=== PATIENT | female | born 1940 | race Caucasian/White ===

== ENCOUNTER 2017-11-16 07:05 | Observation (INO) | payer MEDICARE ==
[2017-11-03 14:47] LABS: BASOPHILS # (AUTO) 0.1 (0.0-0.1); BASOPHILS % 0.8 % (0.0-1.0); EOSINOPHILS # (AUTO) 0.3 (0.0-0.4); EOSINOPHILS % 4.2 % (0.0-6.0); HEMATOCRIT 36.6 % (34.2-44.1); HEMOGLOBIN 12.2 g/dL (12.0-16.0); LYMPHOCYTES # (AUTO) 1.2 (1.0-3.2); LYMPHOCYTES % 17.2 % (18.0-39.1); MEAN CORPUSCULAR HEMOGLOBIN 30.4 pg (28-32); MEAN CORPUSCULAR HGB CONC 33.3 g/dL (31-35); MEAN CORPUSCULAR VOLUME 91.3 fL (81-99); MONOCYTES # (AUTO) 0.9 (0.2-0.8); NEUTROPHILS # (AUTO) 4.6 (2.1-6.9); NEUTROPHILS % 64.7 % (38.7-80.0); PLATELET COUNT 243 x10e3/uL (140-360); RED BLOOD COUNT 4.01 x10e6/uL (3.6-5.1); RED CELL DISTRIBUTION WIDTH 12.8 % (11.7-14.4)
[2017-11-03 15:08] LABS: ANION GAP 12.8 mmol/L (8-16); CALCIUM 9.8 mg/dL (8.4-10.2); CREATININE, SERUM 1.75 mg/dL (0.57-1.11); POTASSIUM 4.8 mmol/L (3.5-5.1)
--- NOTE | 2017-11-03 15:34 | Diagnostic Imaging Report ---
PROCEDURE: Frontal and lateral views of the chest. COMPARISON: [facility], DX, CHEST 2 VIEWS, 11/17/2012, 14:50. INDICATIONS: PRE OPERATIVE CHEST X-RAY FOR HEMORRHOID FINDINGS: Lines/tubes: None. Lungs: The lungs are well inflated. Focal opacity in the left upper lobe measures approximately 2.5 x 1.1 cm (previously measured 2.2 x 1.4 cm) and contains a central marker. Stable associated linear opacity. There is no evidence of pneumonia or pulmonary edema. Previously described questionable 5 mm density in the right upper lobe is not seen on the current exam. Pleura: There is no pleural effusion or pneumothorax. Heart and mediastinum: The heart and the mediastinum are normal. Bones: Stable dextroscoliosis. IMPRESSION: 1. No acute cardiopulmonary abnormalities. 2. Focal opacity in the left upper lobe with central marker is slightly more prominent than on prior exam. Recommend contrast enhanced chest CT for further evaluation. Juan Manuel Collier M.D. Dictated by: Juan Manuel Collier M.D. on 11/03/2017 at 15:34 Electronically approved by: Juan Manuel Collier M.D. on 11/03/2017 at 15:34
[~2017-11-16] VITALS: Ht 162.6 cm; Wt 69.4 kg
[~2017-11-16 07:05] MED LIST: DIOVAN160 MG PO; PANTOPRAZOLE SO40 MG PO; TEMAZEPAM PO; Z EXFORGE PO; Z.0.LORAZEPAM0.5 MG PO; Z.0.NEURONTIN100 MG PO; Z.0.NORCO 7.5-3251 E PO; Z.0.PREVACID15 MG PO; Z.0.REGLAN5 MG PO; Z.0.SYNTHROID25 MCG PO; [UNRECOGNIZED DRUG - OTHER] PO
--- OUTSIDE RECORDS SUMMARY | 2017-11-16 07:07 | XMS REPORT ---
Author Author [facility] Address Unknown Phone Unavailable Care Team Providers Care Web Development Intern Name Role Phone ASHLEY HOPSON Unavailable Unavailable Problems This patient has no known problems. Allergies, Adverse Reactions, Alerts This patient has no known allergies or adverse reactions. Medications This patient has no known medications. Results Test Description Test Time Test Comments Text Results Atomic Results Result Comments CHEST 2 VIEWS [place] [address] Patient Name: KADE SAUCEDO MR #: [id number] : 1940 Age/Sex: 76/F Req # : [id number] Adm Physician: Ordered by: ASHLEY HOPSON MD Report #: [id number] Location: OR Room/Bed: Procedure: [id number] DX/CHEST 2 VIEWS Exam Date: 11/03/17 Exam Time : 1500 REPORT STATUS: Signed PROCEDURE: Frontal and lateral views of the chest. COMPARISON: [facility], , CHEST 2 VIEWS, 2012, 14:50. INDICATIONS: PRE OPERATIVE CHEST X-RAY FOR HEMORRHOID FINDINGS: Lines/tubes: None. Lungs: The lungs are well inflated. Focal opacity in the left upper lobe measures approximately 2.5 x 1.1 cm (previously measured 2.2 x 1.4 cm) and contains a central marker. Stable associated linear opacity. There is no evidence of pneumonia or pulmonary edema. Previously described questionable 5 mm density in the right upper lobe is not seen on the current exam. Pleura: There is no pleural effusion or pneumothorax. Heart and mediastinum: The heart and the mediastinum are normal. Bones: Stable dextroscoliosis. IMPRESSION: 1. No acute cardiopulmonary abnormalities. 2. Focal opacity in the left upper lobe with central marker is slightly more prominent than on prior exam. Recommend contrast enhanced chest CT for further evaluation. Ida Caldwell M.D. Dictated by: Ida Caldwell M.D. on 11/03/2017 at 15:34 Electronically approved by: Ida Caldwell M.D. on 11/03/2017 at 15:34 Dictated By: IDA CALDWELL MD [id number] Transcribed By: ELOINA on 11/03/17 1534 COPY TO: ASHLEY HOPSON MD
[2017-11-16] MEDS ORDERED: BUPIVACAINE 0.25%/EPI 30ML SDV INJ ONE (07:11)
[2017-11-16] MEDS ORDERED: LIDOCAINE HCL 1% LOCAL INJ 20 ML VIAL ONE (07:11)
[2017-11-16] MEDS ORDERED: LIDOCAINE JELLY 2% 10ML URO-JET ONE (07:11)
[2017-11-16] MEDS ORDERED: GELATIN SPONGE 12-7MM ONE (07:11)
[2017-11-16] MEDS ORDERED: GELATIN SPONGE SZ 100 ONE (07:14)
[2017-11-16] MEDS ORDERED: LIDOCAINE HCL 2% 30 ML TUBE ONE (07:14)
[2017-11-16] MEDS ORDERED: LIDOCAINE HCL 1% 2 ML AMP ONE (07:27)
[2017-11-16] MEDS ORDERED: HYDROMORPHONE 1MG/1ML INJ IV PRN (10:00)
[2017-11-16] MEDS ORDERED: ONDANSETRON HCL INJ 2 MG/ML VIAL IV PRN (10:00)
[2017-11-16] MEDS ORDERED: HYDROCODONE/APAP 7.5MG-325MG 1 EA TAB PO PRN (10:00)
[2017-11-16] MEDS ORDERED: ACETAMINOPHEN 1000 MG/100 ML IV PRN (10:00)
--- NOTE | 2017-11-16 10:34 | Operative Report ---
DATE OF PROCEDURE: November 16, 2017 PREOPERATIVE DIAGNOSIS: Rectal prolapse with prolapsing internal hemorrhoids. POSTOPERATIVE DIAGNOSIS: Rectal prolapse with prolapsing internal hemorrhoids. OPERATION PERFORMED: Circumferential rectal fixation and internal and external hemorrhoidectomy. GINSENG FARMER: CAMILA Rhodes. ANESTHESIA: General. COMPLICATIONS: None. ESTIMATED BLOOD LOSS: Minimal. DESCRIPTION OF PROCEDURE: With the patient lying in bed in the lithotomy position under good general anesthesia, the perineum was prepped with Betadine solution and draped in the usual manner. Examination at this point revealed as expected a very lax anal sphincter with some degree of rectal prolapse mostly anteriorly with some inflamed prolapsing internal hemorrhoids. A complete anorectal block was then performed using 0.25% Marcaine and 1% lidocaine mixed in equal parts. After this was done, the rectum was then tacked using interrupted sutures of 0 chromic in 6 quadrants fixating the rectum to try to prevent any further prolapse. After this was done, the external and internal hemorrhoidal components at the 4, 8 and 12 o'clock position were then sharply resected. The anal rectal verge was then further oversewn with 0 chromic suture and thus fixating the anorectal outlet. The skin and mucosa were then reapproximated with interrupted sutures of 3-0 chromic. This gave us satisfactory fixation and excision of the prolapsing hemorrhoids. Gelfoam pack impregnated with Xylocaine was then placed. A dressing was applied. The sponge, lap and needle count was correct. Patient tolerated the procedure well, and returned to the recovery room in stable condition. Job#: [id number] [place]
[2017-11-16 10:45] VITALS: BP 159/69
[2017-11-16] MEDS ORDERED: CEFOXITIN 1GM/ DEXTROSE 50ML 50 ML IV SCH (12:00)
[2017-11-16] MEDS: CEFOXITIN SOD 1 GM VIAL IV SCH ×2 (15:15→18:40)
[2017-11-16 16:00] VITALS: BP 149/67
[2017-11-16 16:09] VITALS: BP 159/69
[2017-11-16] MEDS: KETOROLAC TROMETHAMINE 30 MG/ML VIAL IV PRN (16:45)
[2017-11-16] MEDS: SODIUM CHLORIDE 0.9% 1000ML 1,000 ML IV SCH (17:40)
[2017-11-16] MEDS ORDERED: FENTANYL CITRATE/PF 100MCG/2 ML INJ ONE (19:14)
[2017-11-16] MEDS ORDERED: MIDAZOLAM HCL 2 MG/2 ML VIAL ONE (19:14)
[2017-11-16] MEDS ORDERED: PROPOFOL IV EMULSION 10 MG/ML 20 ML VIAL ONE (19:39)
[2017-11-16] MEDS ORDERED: ONDANSETRON HCL INJ 2 MG/ML VIAL ONE (19:39)
[2017-11-16] MEDS ORDERED: LIDOCAINE HCL 2% LOCAL INJ 5 ML SDV VIAL INJ ONE (19:39)
[2017-11-16] MEDS ORDERED: DEXAMETHASONE SOD PHOS INJ 4 MG/ML VIAL ONE (19:39)
[2017-11-16] MEDS ORDERED: SEVOFLURANE INHAL SOLN 250 ML PEN BTL ONE (19:39)
[2017-11-16 20:00] VITALS: BP 107/53
[2017-11-16 20:10] VITALS: BP 107/53
[2017-11-17 00:40] VITALS: BP 152/69
[2017-11-17 04:40] VITALS: BP 115/58
[2017-11-17] MEDS ORDERED: LEVOTHYROXINE SODIUM 25 MCG TABLET PO SCH ×2 (06:00→09:00)
[2017-11-17] MEDS: SODIUM CHLORIDE 0.9% 1000ML 1,000 ML IV SCH (06:23)
[2017-11-17 07:39] VITALS: BP 123/58
[2017-11-17 07:42] VITALS: BP 123/58
[2017-11-17] MEDS: KETOROLAC TROMETHAMINE 30 MG/ML VIAL IV PRN (08:02)
[2017-11-17] MEDS ORDERED: VALSARTAN 160 MG TAB PO SCH (09:00)
[2017-11-17] MEDS ORDERED: GABAPENTIN 100 MG CAP PO SCH (09:00)
[2017-11-17] MEDS ORDERED: AMLODIPINE PO SCH (09:00)
[2017-11-17] MEDS ORDERED: PANTOPRAZOLE SOD 40 MG TABEC PO SCH (09:00)
[2017-11-17] MEDS ORDERED: AMLODIPINE BESYLATE 10 MG TAB PO SCH (09:00)
[2017-11-17] MEDS ORDERED: VALSARTAN PO SCH (09:00)
[2017-11-17 11:45] VITALS: BP 118/56
== END 2017-11-17 13:29 | disposition home or self-care (01) ==
LOC: OR 07:05 → IMCU 10:36
PROVIDERS: ADMIT Surgery; ATTEND Surgery
DX: K62.3 Rectal prolapse (principal); K64.8 Other hemorrhoids; Z85.118 Personal history of other malignant neoplasm of bronchus and lung
CPT/HCPCS: 36415; 45541; 46260; 71046; 80048; 85025; 88304; 93005; G0378 ×2; J0694; J1100; J1170; J1885 ×2; J2001 ×3; J2250; J2405; J7030 ×2

== ENCOUNTER → 2019-02-07 | Day surgery (SDC) | payer MEDICARE ==
[2019-02-05 15:24] LABS: BASOPHILS # (AUTO) 0.1 (0.0-0.1); BASOPHILS % 0.5 % (0.0-1.0); EOSINOPHILS # (AUTO) 0.3 (0.0-0.4); HEMATOCRIT 39.1 % (34.2-44.1); HEMOGLOBIN 12.8 g/dL (12.0-16.0); LYMPHOCYTES # (AUTO) 0.9 (1.0-3.2); LYMPHOCYTES % 6.8 % (18.0-39.1); MEAN CORPUSCULAR HEMOGLOBIN 30.8 pg (28-32); MEAN CORPUSCULAR HGB CONC 32.7 g/dL (31-35); MONOCYTES # (AUTO) 1.2 (0.2-0.8); NEUTROPHILS # (AUTO) 10.7 (2.1-6.9); NEUTROPHILS % 81.4 % (38.7-80.0); PLATELET COUNT 267 x10e3/uL (140-360); RED BLOOD COUNT 4.16 x10e6/uL (3.6-5.1); RED CELL DISTRIBUTION WIDTH 13.5 % (11.7-14.4)
[~2019-02-07] MED LIST changes: +AMLODIPINE BESY10 MG PO; +IRBESARTAN-HCT1 EAC1 PO; +LIDOCAINE HCL 1% 2 ML AMP ONE; +LIDOCAINE HCL 2% LOCAL INJ 5 ML SDV VIAL INJ ONE; +MIDAZOLAM HCL 2 MG/2 ML VIAL ONE; +PROPOFOL IV EMULSION 10 MG/ML 20 ML VIAL ONE
--- OUTSIDE RECORDS SUMMARY | 2019-02-07 11:16 | XMS REPORT | Continuity of Care Document ---
Author Author [facility] Interface Address Unknown Phone Unavailable Problems Problem Status Onset Date Classification Date Reported Comments Source FECAL INCONTINANCE Active 10[facility]11/2018 [facility] PELVIC FLOOR R15.9 Active 09/04/2018 [facility] PELVIC FLOOR Active 08/31/2018 [facility] UNK Active 05/17/2018 [facility] Anxiety Active Problem 01/30/2019 [facility] Arthritis Active Problem 01/30/2019 [facility] Benign hypertension Active Problem 01/30/2019 [facility] History of lung cancer Active Problem 01/30/2019 [facility] Hypothyroid Active Problem 01/30/2019 [facility] Bilateral low back pain Active Problem 01/30/2019 [facility] Acute leg pain<sup>1</sup> Active Problem 01/30/2019 Bilateral [facility] Rectal prolapse Active Problem 01/30/2019 [facility] Rectal prolapse 01/30/2019 [facility] Essential hypertension 01/30/2019 [facility] Age-related osteoporosis without current pathological fracture 01/30/2019 [facility] Personal history of other malignant neoplasm of bronchus and lung 01/30/2019 [facility] RECTAL PROLAPSE Active [facility] Medications Medication Details Route Status Patient Instructions Ordering Provider Order Date Source Acetaminophen 500 MG Oral Tablet 1,000 mg=2 tab, PO, Q6H, 0 Refill(s) Active 07/13/2018 [facility] Amlodipine 2.5 mg, 1 tab, Route: PO, Drug form: TAB, Daily, Dosing Weight 72.727, kg, Start date: 07/13/18 9:00:00 D[employer] ATTACHING MACHINE TENDER, Duration: 30 day, Stop date: 08/11/18 9:00:00 CSTNotes: (Same as: Norvasc) Inactive 07/13/2018 [facility] valsartan 80 mg, 1 tab, Route: PO, Drug form: TAB, Daily, Dosing Weight 72.727, kg, Start date: 07/13/18 9:00:00 D[employer] ATTACHING MACHINE TENDER, Duration: 30 day, Stop date: 08/11/18 9:00:00 CSTNotes: Same as Diovan Inactive 07/13/2018 [facility] heparin 5,000 unit, 1 mL, Route: SUB-Q, Drug form: INJ, Q8H, Dosing Weight 72.727, kg, Start date: 07/13/18 8:00:00 D[employer] ATTACHING MACHINE TENDER, Stop date: 08/12/18 0:00:00 CSTNotes: porcine heparin Inactive 07/13/2018 [facility] Famotidine 20 mg, 1 tab, Route: PO, Drug form: TAB, Q12H, Dosing Weight 72.727, kg, Start date: 07/12/18 21:00:00 D[employer] ATTACHING MACHINE TENDER, Duration: 30 day, Stop date: 08/11/18 9:00:00 CSTNotes: (Same as: Pepcid) No Longer Active 07/13/2018 [facility] Tylenol 1,000 mg, 2 tab, Route: PO, Drug form: TAB, Q6H, Dosing Weight 72.727, kg, Start date: 07/12/18 18:00:00 DIE ATTACHING MACHINE TENDER, Duration: 30 day, Stop date: 08/11/18 12:00:00 CSTNotes: Max acetaminophen 4000 mg/day (4 gm/day). (Same as: Tylenol Extra Strength) No Longer Active 07/13/2018 [facility] heparin 5,000 unit, 1 mL, Route: SUB-Q, Drug form: INJ, Q8H, Dosing Weight 72.727, kg, Start date: 07/12/18 16:00:00 DIE ATTACHING MACHINE TENDER, Stop date: 08/11/18 8:00:00 CSTNotes: porcine heparin Inactive 07/12/2018 [facility] Ondansetron 4 mg, Route: IVP, ONCE, Dosing Weight 72.727, kg, PRN Nausea & Vomiting, Start date: 07/12/18 14:47:00 DIE ATTACHING MACHINE TENDER Inactive 07/12/2018 [facility] Flumazenil 0.2 mg, Route: IVP, PRN, Dosing Weight 72.727, kg, PRN Benzodiazepine Reversal, Initial dose, Start date: 07/12/18 14:47:00 DIE ATTACHING MACHINE TENDER, Duration: 30 day, Stop date: 08/11/18 14:46:00 DIE ATTACHING MACHINE TENDER Inactive 07/12/2018 [facility] Naloxone 0.4 mg, Route: IVP, Q2MIN, Dosing Weight 72.727, kg, PRN Narcotic Reversal, Start date: 07/12/18 14:47:00 DIE ATTACHING MACHINE TENDER, Duration: 8 doses or times, Stop date: Limited # of times Inactive 07/12/2018 [facility] Hydromorphone 0.5 mg, Route: IVP, Q5Min, Dosing Weight 72.727, kg, PRN Pain Score 7-10, Start date: 07/12/18 14:47:00 DIE ATTACHING MACHINE TENDER, Duration: 4 doses or times, Stop date: Limited # of times Inactive 07/12/2018 [facility] Morphine 2 mg, Route: IVP, Q5Min, Dosing Weight 72.727, kg, PRN Pain Score 4-6, Start date: 07/12/18 14:47:00 DIE ATTACHING MACHINE TENDER, Duration: 5 doses or times, Stop date: Limited # of times Inactive 07/12/2018 [facility] Acetaminophen 1,000 mg, Route: IVPB, Drug form: INJ, ONCE, Dosing Weight 72.727, kg, PRN Pain Score 1-3, Start date: 07/12/18 14:47:00 DIE ATTACHING MACHINE TENDER Inactive 07/12/2018 [facility] Labetalol 10 mg, Route: IVP, Q5Min, Dosing Weight 72.727, kg, PRN Elevated BP, Start date: 07/12/18 14:47:00 DIE ATTACHING MACHINE TENDER, Duration: 5 doses or times, Stop date: Limited # of times Inactive 07/12/2018 [facility] Calcium Chloride 0.0014 MEQ/ML / Potassium Chloride 0.004 MEQ/ML / Sodium Chloride 0.103 MEQ/ML / Sodium Lactate 0.028 MEQ/ML Injectable Solution 1,000 mL, Rate: 125 ml/hr, Infuse over: 8 hr, Route: IV, Dosing Weight 72.727 kg, Total Volume: 1,000, Start date: 07/12/18 14:47:00 DIE ATTACHING MACHINE TENDER, Duration: 30 day, Stop date: 08/11/18 14:46:00 DIE ATTACHING MACHINE TENDER, 1.83, m2 Inactive 07/12/2018 [facility] ceFAZolin (ANES) Route: IV, Drug form: INJ, ONCE, Stop date: 07/12/18 14:24:00 DIE ATTACHING MACHINE TENDER Inactive 07/12/2018 [facility] ketOROLAC (ANES) IV, ONCE Inactive 07/12/2018 [facility] Lidocaine 2 gm, 250 mL, Rate: Infuse as directed, Dosing Weight 72.727, kg, Route: IV, Total Volume: 250 mL, Start date: 07/12/18 14:15:00 DIE ATTACHING MACHINE TENDER, Duration: 30 day, Stop date: 08/11/18 14:14:00 DIE ATTACHING MACHINE TENDER, Replace Every: 24 hr Inactive 07/12/2018 [facility] Dexmedetomidine 200 microgram, 50 mL, Rate: Titrate, Start Dose: 0.02 microgram/kg/hr, Titration: 0.1 microgram/kg/hr every 30 min, Goal(s): keep patient comfortable, Max Dose: 1.5 microgram/kg/hr, Route: IV, Dosing Weight 72.727 kg, Total Volume: 50, Start date: . Inactive 07/12/2018 [facility] Ondansetron 4 mg, 2 mL, Route: IVP, Drug form: INJ, Q6H, Dosing Weight 72.727, kg, PRN Nausea & Vomiting, Start date: 07/12/18 14:15:00 DIE ATTACHING MACHINE TENDER, Duration: 30 day, Stop date: 08/11/18 14:14:00 CSTNotes: (Same as: Melyssa) MEDICATION WASTE Product Size: 4 mg Product Wasted: ___ mg No Longer Active 07/12/2018 [facility] Diphenhydramine 25 mg, 1 tab, Route: PO, Drug form: TAB, Bedtime, Dosing Weight 72.727, kg, PRN Insomnia, Start date: 07/12/18 14:15:00 DIE ATTACHING MACHINE TENDER, Duration: 30 day, Stop date: 08/11/18 14:14:00 DIE ATTACHING MACHINE TENDER No Longer Active 07/12/2018 [facility] metroNIDAZOLE (ANES) Route: IV, Drug form: INJ, ONCE, Stop date: 07/12/18 13:53:00 DIE ATTACHING MACHINE TENDER Inactive 07/12/2018 [facility] ondansetron (ANES) Route: IV, Drug form: INJ, ONCE, Stop date: 07/12/18 13:33:00 DIE ATTACHING MACHINE TENDER Inactive 07/12/2018 [facility] propofol (ANES) Route: IV, Drug form: INJ, ONCE, Stop date: 07/12/18 13:28:00 DIE ATTACHING MACHINE TENDER Inactive 07/12/2018 [facility] lidocaine (ANES) Route: IV, Drug form: INJ, ONCE, Stop date: 07/12/18 13:28:00 DIE ATTACHING MACHINE TENDER Inactive 07/12/2018 [facility] dexamethasone (ANES) Route: IV, Drug form: INJ, ONCE, Stop date: 07/12/18 13:28:00 DIE ATTACHING MACHINE TENDER Inactive 07/12/2018 [facility] midazolam (ANES) Route: IV, Drug form: SOLN, ONCE, Stop date: 07/12/18 13:18:00 DIE ATTACHING MACHINE TENDER Inactive 07/12/2018 [facility] fentaNYL (ANES) Route: IV, Drug form: INJ, ONCE, Stop date: 07/12/18 13:18:00 DIE ATTACHING MACHINE TENDER Inactive 07/12/2018 [facility] Bupivacaine Hydrochloride 5 MG/ML / Epinephrine 0.005 MG/ML Injectable Solution 30 mL, Route: InFILtration(local), Drug Form: INJ, Dosing Weight 72.727, kg, ONCE, Start date: 07/12/18 13:07:00 DIE ATTACHING MACHINE TENDER, Stop date: 07/12/18 13:07:00 CSTNotes: (bupivacaine-epi 0.5%-1:200,000 30 ml VL) Not for use in continuous infusion. (Same As: Marcaine w/Epi) Inactive 07/12/2018 [facility] Exparel 20 mL, Route: InFILtration(local), Drug Form: INJ, Dosing Weight 72.727, kg, ONCALL, For Hemorrhoidectomy, Start date: 07/12/18 13:00:00 DIE ATTACHING MACHINE TENDER, Duration: 30 day, Stop date: 08/11/18 12:59:00 CSTNotes: (Same as: Exparel) NOT FOR IV use Postoperative analgesia: Infiltration (local): Dose is based on surgical site and volume required to cover the area (in general, the maximum total dose is 266 mg). Bunionectomy: 7 mL into the tissues surrounding the osteotomy and 1 mL into the subcutaneous tissue of the surgical site (total dose=8 mL [106 mg]) Hemorrhoidectomy: 30 mL (20 mL vial diluted with 10 mL NS) divided and administered as 6 injections of 5 mL each (total dose=30 mL [266 mg]) No Longer Active 07/12/2018 [facility] Lactated Ringers Injection IV (ANES) 1000 mL Route: IV, Total Volume: 1,000, Start date: 07/12/18 12:44:00 DIE ATTACHING MACHINE TENDER, Stop date: 07/12/18 13:44:00 DIE ATTACHING MACHINE TENDER Inactive 07/12/2018 [facility] Albuterol 0.833 MG/ML / Ipratropium [place] 0.167 MG/ML Inhalant Solution 3 mL, Route: NEB, Dosing Weight 72.727, kg, ONCE, STAT, Start date: 07/12/18 12:28:00 DIE ATTACHING MACHINE TENDER, Stop date: 07/12/18 12:28:00 DIE ATTACHING MACHINE TENDER Inactive 07/12/2018 [facility] Calcium Chloride 0.0014 MEQ/ML / Potassium Chloride 0.004 MEQ/ML / Sodium Chloride 0.103 MEQ/ML / Sodium Lactate 0.028 MEQ/ML Injectable Solution 1,000 mL, Rate: 25 ml/hr, Infuse over: 40 hr, Route: IV, Dosing Weight 72.727 kg, Total Volume: 1,000, Start date: 07/12/18 12:28:00 DIE ATTACHING MACHINE TENDER, Duration: 30 day, Stop date: 08/11/18 12:27:00 DIE ATTACHING MACHINE TENDER, 1.83, m2 Inactive 07/12/2018 [facility] Synthroid PO, Daily, 0 Refill(s) Active 06/28/2018 [facility] Furosemide See Instructions, 10 mg Daily, 0 Refill(s) Active 06/28/2018 [facility] Lorazepam See Instructions, 0 Refill(s) Active 06/28/2018 [facility] Temazepam PO, Bedtime, 0 Refill(s) Active 06/28/2018 [facility] Acetaminophen 325 MG / Hydrocodone Bitartrate 7.5 MG Oral Tablet [[place] 7.5/325] 1 tab, PO, Q6H, PRN Pain Score 7-10, # 20 tab, 0 Refill(s), given to patient Active 01/31/2018 [facility] Ofirmev 1,000 mg, 31.23 mL, Route: PO, Drug form: LIQ, Q6H, Dosing Weight 70.511, kg, for > or=50 kg, Start date: 01/31/18 12:00:00 CDT, Duration: 30 day, Stop date: 03/02/18 6:00:00 CDTNotes: Max acetaminop stm=5722sl/day (4 gm/day). (Same as: Tylenol) Inactive 01/31/2018 [facility] Lovenox 40 mg, 0.4 mL, Route: SUB-Q, Drug form: INJ, [id number], Dosing Weight 70.511, kg, Start date: 01/31/18 9:00:00 CDT, Duration: 30 day, Stop date: 03/01/18 9:00:00 CDTNotes: (Same as: Lovenox) Inactive 01/31/2018 [facility] Amlodipine 2.5 mg, 1 tab, Route: PO, Drug form: TAB, Daily, Dosing Weight 70.511, kg, Start date: 01/31/18 9:00:00 CDT, Duration: 30 day, Stop date: 03/01/18 9:00:00 CDTNotes: (Same as: Norvasc) Inactive 01/31/2018 [facility] valsartan 80 mg, 1 tab, Route: PO, Drug form: TAB, Daily, Dosing Weight 70.511, kg, Start date: 01/31/18 9:00:00 CDT, Duration: 30 day, Stop date: 03/01/18 9:00:00 CDTNotes: Same as Diovan Inactive 01/31/2018 [facility] Protonix 40 mg, 1 tab, Route: PO, Drug form: ECTAB, Daily, Dosing Weight 70.511, kg, Start date: 01/31/18 9:00:00 CDT, Duration: 30 day, Stop date: 03/01/18 9:00:00 CDTNotes: Tablet should not be chewed or crushed. (Same as: Protonix) Inactive 01/31/2018 [facility] ceFAZolin (SCIP) + sterile water 10 mL 1 gm, Route: IVP, Q8H, Dosing Weight 70.511, kg, Start date: 01/30/18 21:00:00 CDT, Duration: 1 doses or times, Stop date: 01/30/18 21:00:00 CDT, ABX Indication: Surgical ProphylaxisNotes: (Same As: Ancef Kesophiezol) MEDICATION WASTE Product Size: 1000 mg Product Wasted: ___ mg Inactive 01/31/2018 [facility] HYDROcodone 40 mg oral capsule, extended release HYDROcodone 40 mg oral capsule, extended release, 40 mg, Route: PO, Q12H, 01/30/18 21:00:00 CDT, Duration: 30 day, Stop date: 03/01/18 9:00:00 CDT Inactive 01/31/2018 [facility] metroNIDAZOLE (SCIP) 500 mg, 100 mL, Route: IVPB, Drug form: INJ, Q8H, Dosing Weight 70.511, kg, Start date: 01/30/18 20:00:00 CDT, Duration: 1 doses or times, Stop date: 01/30/18 20:00:00 CDT, ABX Indication: Surgical ProphylaxisNotes: (Same as: Flagyl) Avoid alcohol. Inactive 01/31/2018 [facility] acetaminophen-hydrocodone 1 tab, Route: PO, Drug Form: TAB, Q4H, PRN Pain Score 6-10, Start date: 01/30/18 19:13:00 CDT, Duration: 30 day, Stop date: 03/01/18 19:12:00 CDTNotes: Same as [place] 325-7.5mg Do not exceed 4gm/day of acetaminophen. No Longer Active 01/31/2018 [facility] Methocarbamol 750 mg, 7.5 mL, Route: IVPB, Drug form: INJ, Q6H, Dosing Weight 70.511, kg, Start date: 01/30/18 18:00:00 CDT, Duration: 30 day, Stop date: 03/01/18 8:00:00 CDTNotes: (Same as:Robaxin) No Longer Active 01/30/2018 [facility] Ofirmev 1,000 mg, 100 mL, Route: IVPB, Drug form: INJ, Q6H, Dosing Weight 70.511, kg, for > or=50 kg, Start date: 01/30/18 18:00:00 CDT, Duration: 30 day, Stop date: 03/01/18 12:00:00 CDTNotes: Infuse over 15 minutes Do not exceed 4gm/day of acetaminophen MEDICATION WASTE Product Size: 1000 mg Product Wasted: ___ mg No Longer Active 01/30/2018 [facility] Naproxen 500 mg, 1 tab, Route: PO, Drug form: TAB, BID, Dosing Weight 70.511, kg, Start date: 01/30/18 17:00:00 CDT, Duration: 30 day, Stop date: 03/01/18 9:00:00 CDTNotes: (Same as: Naprosyn) Take with food. No Longer Active 01/30/2018 [facility] Famotidine 20 mg, 1 tab, Route: PO, Drug form: TAB, Q24H, Dosing Weight 70.511, kg, Start date: 01/30/18 17:00:00 CDT, Duration: 30 day, Stop date: 02/28/18 17:00:00 CDTNotes: (Same as: Pepcid) No Longer Active 01/30/2018 [facility] Enoxaparin 40 mg, 0.4 mL, Route: SUB-Q, Drug form: INJ, [id number], Dosing Weight 70.511, kg, Start date: 01/30/18 16:00:00 CDT, Duration: 30 day, Stop date: 02/28/18 16:00:00 CDTNotes: (Same as: Lovenox) Inactive 01/30/2018 [facility] gabapentin 300 MG Oral Capsule 200 mg, 2 cap, Route: PO, Drug form: CAP, Q12H, Dosing Weight 70.511, kg, (CrCl > 60 ml/min), Start date: 01/30/18 16:00:00 CDT, Duration: 30 day, Stop date: 03/01/18 9:00:00 CDTNotes: (Same as: Neurontin) No Longer Active 01/30/2018 [facility] Metronidazole 500 mg, 100 mL, Route: IVPB, Drug form: INJ, Q8H, Dosing Weight 70.511, kg, Start date: 01/30/18 16:00:00 CDT, Duration: 1 doses or times, Stop date: 01/30/18 16:00:00 CDT, ABX Indication: Surgical Prop hylaxisNotes: (Same as: Flagyl) Avoid alcohol. Inactive 01/30/2018 [facility] Cefazolin 1 gm, 100 mL, Route: IVPB, Drug form: INJ, Q8H, Dosing Weight 70.511, kg, Start date: 01/30/18 16:00:00 CDT, Duration: 1 doses or times, Stop date: 01/30/18 16:00:00 CDT, ABX Indication: Surgical Prophylaxis Inactive 01/30/2018 [facility] Fentanyl 50 microgram, Route: IVP, Q5Min, Dosing Weight 70.511, kg, PRN Pain Score 7-10, Priority: Routine, Start date: 01/30/18 15:24:00 CDT, Duration: 2 doses or times, Stop date: Limited # of times Inactive 01/30/2018 [facility] Ondansetron 4 mg, Route: IVP, ONCE, Dosing Weight 70.511, kg, PRN Nausea & Vomiting, Start date: 01/30/18 15:23:00 CDT Inactive 01/30/2018 [facility] Flumazenil 0.2 mg, Route: IVP, PRN, Dosing Weight 70.511, kg, PRN Benzodiazepine Reversal, Initial dose, Start date: 01/30/18 15:23:00 CDT, Duration: 30 day, Stop date: 03/01/18 15:22:00 CDT Inactive 01/30/2018 [facility] Morphine 4 mg, Route: IVP, Q5Min, Dosing Weight 70.511, kg, PRN Pain Score 7-10, Start date: 01/30/18 15:23:00 CDT, Duration: 3 doses or times, Stop date: Limited # of times Inactive 01/30/2018 [facility] Naloxone 0.4 mg, Route: IVP, Q2MIN, Dosing Weight 70.511, kg, PRN Narcotic Reversal, Start date: 01/30/18 15:23:00 CDT, Duration: 8 doses or times, Stop date: Limited # of times Inactive 01/30/2018 [facility] Hydromorphone 0.5 mg, Route: IVP, Q5Min, Dosing Weight 70.511, kg, PRN Pain Score 7-10, Start date: 01/30/18 15:23:00 CDT, Duration: 4 doses or times, Stop date: Limited # of times Inactive 01/30/2018 [facility] Fentanyl 25 microgram, Route: IVP, Q5Min, Dosing Weight 70.511, kg, PRN Pain Score 4-6, Priority: Routine, Start date: 01/30/18 15:23:00 CDT, Duration: 4 doses or times, Stop date: Limited # of times Inactive 01/30/2018 [facility] Oxycodone 10 mg, Route: PO, Drug form: TAB, Q4H, Dosing Weight 70.511, kg, PRN Pain Score 7-10, Start date: 01/30/18 15:23:00 CDT, Duration: 30 day, Stop date: 03/01/18 15:22:00 CDT Inactive 01/30/2018 [facility] Dilaudid 1 mg, 0.5 tab, Route: PO, Drug form: TAB, Q4H, Dosing Weight 70.511, kg, PRN Pain Score 7-10, Start date: 01/30/18 15:07:00 CDT, Stop date: 03/01/18 15:06:00 CDTNotes: (Same as: Dilaudid) No Longer Active 01/30/2018 [facility] Ondansetron 4 mg, 2 mL, Route: IVP, Drug form: INJ, Q6H, Dosing Weight 70.511, kg, PRN Nausea & Vomiting, Start date: 01/30/18 15:07:00 CDT, Duration: 30 day, Stop date: 03/01/18 15:06:00 CDTNotes: (Same as: Zofran) MEDICATION WASTE Product Size: 4 mg Product Wasted: ___ mg No Longer Active 01/30/2018 [facility] Diphenhydramine 25 mg, 1 tab, Route: PO, Drug form: TAB, Bedtime, Dosing Weight 70.511, kg, PRN Insomnia, Start date: 01/30/18 15:07:00 CDT, Duration: 30 day, Stop date: 03/01/18 15:06:00 CDT No Longer Active 01/30/2018 [facility] Calcium Chloride 0.0014 MEQ/ML / Potassium Chloride 0.004 MEQ/ML / Sodium Chloride 0.103 MEQ/ML / Sodium Lactate 0.028 MEQ/ML Injectable Solution 1,000 mL, Rate: 50 ml/hr, Infuse over: 20 hr, Route: IV, Dosing Weight 70.511 kg, Total Volume: 1,000, Start date: 01/30/18 15:07:00 CDT, Duration: 30 day, Stop date: 03/01/18 15:06:00 CDT, 1.8, m2 No Longer Active 01/30/2018 [facility] metroNIDAZOLE (ANES) Route: IV, Drug form: INJ, ONCE, Stop date: 01/30/18 13:40:00 CDT Inactive 01/30/2018 [facility] Amidate (ANES) Route: IV, Drug form: INJ, ONCE, Stop date: 01/30/18 13:35:00 CDT Inactive 01/30/2018 [facility] midazolam (ANES) Route: IV, Drug form: SOLN, ONCE, Stop date: 01/30/18 13:35:00 CDT Inactive 01/30/2018 [facility] lidocaine (ANES) Route: IV, Drug form: INJ, ONCE, Stop date: 01/30/18 13:30:00 CDT Inactive 01/30/2018 [facility] rocuronium (ANES) Route: IV, Drug form: INJ, ONCE, Stop date: 01/30/18 13:30:00 CDT Inactive 01/30/2018 [facility] propofol (ANES) Route: IV, Drug form: INJ, ONCE, Stop date: 01/30/18 13:25:00 CDT Inactive 01/30/2018 [facility] fentaNYL (ANES) Route: IV, Drug form: INJ, ONCE, Stop date: 01/30/18 13:25:00 CDT Inactive 01/30/2018 [facility] ceFAZolin (ANES) Route: IV, Drug form: INJ, ONCE, Stop date: 01/30/18 13:25:00 CDT Inactive 01/30/2018 [facility] Lactated Ringers Injection IV (ANES) 250 mL Route: IV, Total Volume: 250, Start date: 01/30/18 12:34:00 CDT, Stop date: 01/30/18 13:34:00 CDT Inactive 01/30/2018 [facility] Calcium Chloride 0.0014 MEQ/ML / Potassium Chloride 0.004 MEQ/ML / Sodium Chloride 0.103 MEQ/ML / Sodium Lactate 0.028 MEQ/ML Injectable Solution 1,000 mL, Rate: 25 ml/hr, Infuse over: 40 hr, Route: IV, Dosing Weight 70.511 kg, Total Volume: 1,000, Start date: 01/30/18 11:49:00 CDT, Duration: 30 day, Stop date: 03/01/18 11:48:00 CDT, 1.8, m2 Inactive 01/30/2018 [facility] Lactated Ringers IV 250 mL 250 mL, Rate: 25 ml/hr, Infuse over: 10 hr, Route: IV, Dosing Weight 70.511 kg, Total Volume: 250, Start date: 01/30/18 11:45:00 CDT, Duration: 1 doses or times, Stop date: 01/30/18 21:44:00 CDT, 1.8, m2 Inactive 01/30/2018 [facility] gabapentin 300 MG Oral Capsule 300 mg=1 cap, PO, TID, # 90 cap, 0 Refill(s) Active 01/23/2018 [facility] HYDROcodone 40 mg oral capsule, extended release 40 mg=1 cap, PO, Q12H, 0 Refill(s) Active 01/23/2018 [facility] pantoprazole 40 MG Enteric Coated Tablet [Protonix] 40 mg=1 tab, PO, Daily, # 30 tab, 0 Refill(s) Active 01/23/2018 [facility] amLODIPine 2.5 mg oral tablet 2.5 mg=1 tab, PO, Daily, # 30 tab, 0 Refill(s) Active 01/23/2018 [facility] valsartan 80 mg oral tablet 80 mg=1 tab, PO, Daily, # 30 tab, 0 Refill(s) Active 01/23/2018 [facility] Allergies, Adverse Reactions, Alerts Substance Category Reaction Severity Reaction type Status Date Reported Comments Source iodinated radiocontrast dyes Assertion Drug allergy Active [facility] Food Eggs Assertion Drug allergy Active [facility] Food Milk/Milk Products Assertion Drug allergy Active [facility] Immunizations Immunization Date Given Site Status Last Updated Comments Source Results Order Name Results Value Reference Range Date Interpretation Comments Source ELECTROLYTES AGAP 12.0 meq/L 10.0 - 20.0 06/28/2018 [facility] ELECTROLYTES Chloride Lvl 101 meq/L 95 - 109 06/28/2018 [facility] ELECTROLYTES CO2 28 meq/L 24 - 32 06/28/2018 [facility] ELECTROLYTES Sodium Lvl 136 meq/L 135 - 145 06/28/2018 [facility] ELECTROLYTES Potassium Lvl 5.0 meq/L 3.5 - 5.1 06/28/2018 [facility] HEMATOLOGY INR 1.01 0.85 - 1.17 06/28/2018 [facility] HEMATOLOGY PT 13.3 s 12.0 - 14.7 06/28/2018 [facility] PTT 30.4 s 22.9 - 35.8 06/28/2018 [facility] MPV 8.9 fL 7.4 - 10.4 06/28/2018 [facility] Platelet 273 K/CMM 133 - 450 06/28/2018 [facility] MCH 29.3 pg 27.0 - 31.0 06/28/2018 [facility] MCHC 33.2 g/dL 32.0 - 36.0 06/28/2018 [facility] RDW 13.7 % 11.5 - 14.5 06/28/2018 [facility] Hct 37.0 % 36.0 - 48.0 06/28/2018 [facility] Hgb 12.3 g/dL 12.0 - 16.0 06/28/2018 [facility] MCV 88.1 fL 80.0 - 98.0 06/28/2018 [facility] RBC 4.20 M/CMM 4.20 - 5.40 06/28/2018 [facility] WBC 8.6 K/CMM 3.7 - 10.4 06/28/2018 [facility] HEMATOLOGY Eosinophils # 0.5 K/CMM 0.0 - 0.5 06/28/2018 [facility] HEMATOLOGY Basophils # 0.1 K/CMM 0.0 - 0.2 06/28/2018 [facility] Monocytes # 0.9 K/CMM 0.0 - 0.8 06/28/2018 [facility] [place] Lymph[place] # 1.3 K/CMM 1.0 - 5.5 06/28/2018 [facility] Neutrophils # 5.8 K/CMM 1.5 - 8.1 06/28/2018 [facility] Basophils 1.1 % 0.0 - 1.0 06/28/2018 [facility] Eosinophils 6.1 % 0.0 - 4.0 06/28/2018 [facility] Monocytes 10.7 % 2.0 - 12.0 06/28/2018 [facility] Lymphocytes 14.7 % 20.0 - 40.0 06/28/2018 [facility] Segs 67.4 % 45.0 - 75.0 06/28/2018 [facility] URINE AND STOOL UA Urobilinogen 0.2 EU/dL 0.1 - 1.0 06/28/2018 [facility] URINE AND STOOL UA Nitrite Positive *ABN* (06/28/18 3:12 PM) Negative 06/28/2018 [facility] URINE AND STOOL UA Leuk Est Small *ABN* (06/28/18 3:12 PM) Negative 06/28/2018 [facility] URINE AND STOOL UA Sq Epi Occasional /LPF Few /LPF 06/28/2018 [facility] URINE AND STOOL UA WBC 7 /HPF 0 - 5 06/28/2018 [facility] URINE AND STOOL UA Protein Negative (06/28/18 3:12 PM) Negative 06/28/2018 [facility] URINE AND STOOL UA Glucose Negative (06/28/18 3:12 PM) Negative 06/28/2018 [facility] URINE AND STOOL UA Ketones Negative *NA* (06/28/18 3:12 PM) Negative 06/28/2018 [facility] URINE AND STOOL UA Bili Negative *NA* (06/28/18 3:12 PM) Negative 06/28/2018 [facility] URINE AND STOOL UA Blood Negative (06/28/18 3:12 PM) Negative 06/28/2018 [facility] URINE AND STOOL UA Color Yellow *NA* (06/28/18 3:12 PM) Yellow 06/28/2018 [facility] URINE AND STOOL UA Turbidity Clear (06/28/18 3:12 PM) Clear 06/28/2018 [facility] URINE AND STOOL UA Spec Grav 1.010 <=1.030 06/28/2018 [facility] URINE AND STOOL UA pH 7.0 5.0 - 8.0 06/28/2018 [facility] URINE AND STOOL UA Graham Yeast Occasional /HPF None Seen /HPF 06/28/2018 [facility] URINE AND STOOL UA RBC 1 /HPF 0 - 2 06/28/2018 [facility] URINE AND STOOL UA Hyal Cast 1 /LPF 0 - 2 06/28/2018 [facility] URINE AND STOOL UA Bacteria Occasional /HPF None Seen /HPF 06/28/2018 [facility] Chest 2 views DX Chest 2 views DX Clinical Indication: Coughing - preop exam Comparison: None FINDINGS: The PA and lateral chest radiographs shows normal lung volumes with left mid to upper anterior segments scar with nodular component. There is no effusion or pneumothorax. The heart size and pulmonary vasculature are normal. The trachea is midline. There are no clinically significant osseous abnormalities noted. IMPRESSION: 1. Left upper lobe scar. No focal consolidation is identified SL: [id number] 06/28/2018 - - Read by: Taj Morataya MD Dictated Date/time: 06/28/18 16:05 Electronically Signed by: Taj Morataya MD 06/28/18 16:06 FINAL REPORT [facility] ELECTROLYTES AGAP 11.8 meq/L 10.0 - 20.0 01/31/2018 [facility] ELECTROLYTES eGFR 47 mL/min/1.73m2 01/31/2018 Result Comment: The eGFR is calculated using the CKD-EPI formula. In most young, healthy individuals the eGFR will be >90 mL/min/1.73m2. The eGFR declines with age. An eGFR of 60-89 may be normal in some populations, particularly the elderly, for whom the CKD-EPI formula has not been extensively validated. Use of the eGFR is not recommended in the following populations: Individuals with unstable creatinine concentrations, including patients and those with serious co-morbid conditions. Patients with extremes in muscle mass or diet. The data above are obtained from the National Kidney Disease Education Program (NKDEP) which additionally recommends that when the eGFR is used in patients with extremes of body mass index for purposes of drug dosing, the eGFR should be multiplied by the estimated BMI. [facility] ELECTROLYTES Calcium Lvl 8.3 mg/dL 8.5 - 10.5 01/31/2018 [facility] ELECTROLYTES CO2 23 meq/L 24 - 32 01/31/2018 [facility] ELECTROLYTES Potassium Lvl 3.8 meq/L 3.5 - 5.1 01/31/2018 [facility] ELECTROLYTES Chloride Lvl 111 meq/L 95 - 109 01/31/2018 [facility] ELECTROLYTES Sodium Lvl 142 meq/L 135 - 145 01/31/2018 [facility] ELECTROLYTES Glucose Lvl 92 mg/dL 70 - 99 01/31/2018 [facility] ELECTROLYTES Creatinine Lvl 1.13 mg/dL 0.50 - 1.40 01/31/2018 [facility] ELECTROLYTES BUN 13 mg/dL 7 - 22 01/31/2018 [facility] HEMATOLOGY Hct 35.4 % 36.0 - 48.0 01/31/2018 [facility] HEMATOLOGY Hgb 11.8 g/dL 12.0 - 16.0 01/31/2018 [facility] URINE AND STOOL UA Urobilinogen <=1.0 mg/dL 0.1 - 1.0 01/30/2018 [facility] URINE AND STOOL UA Sq Epi Occasional /LPF Few /LPF 01/30/2018 [facility] URINE AND STOOL UA WBC 1 /HPF 0 - 5 01/30/2018 [facility] URINE AND STOOL UA Nitrite Negative (01/30/18 2:34 PM) Negative 01/30/2018 [facility] URINE AND STOOL UA Mucus Few /LPF None Seen /LPF 01/30/2018 [facility] URINE AND STOOL UA Hyal Cast 3 /LPF 0 - 2 01/30/2018 [facility] URINE AND STOOL UA Leuk Est Trace *ABN* (01/30/18 2:34 PM) Negative 01/30/2018 [facility] URINE AND STOOL UA Turbidity Clear (01/30/18 2:34 PM) Clear 01/30/2018 [facility] URINE AND STOOL UA Spec Grav 1.014 <=1.030 01/30/2018 [facility] URINE AND STOOL UA Bili Negative *NA* (01/30/18 2:34 PM) Negative 01/30/2018 [facility] URINE AND STOOL UA Blood Negative (01/30/18 2:34 PM) Negative 01/30/2018 [facility] URINE AND STOOL UA Glucose Negative mg/dL Negative mg/dL 01/30/2018 [facility] URINE AND STOOL UA Ketones Negative mg/dL Negative mg/dL 01/30/2018 [facility] URINE AND STOOL UA pH 5.0 5.0 - 8.0 01/30/2018 [facility] URINE AND STOOL UA Protein Negative mg/dL Negative mg/dL 01/30/2018 [facility] URINE AND STOOL UA Color Yellow *NA* (01/30/18 2:34 PM) Yellow 01/30/2018 [facility] ELECTROLYTES AGAP 11.0 meq/L 10.0 - 20.0 01/23/2018 [facility] ELECTROLYTES eGFR 50 mL/min/1.73m2 01/23/2018 Result Comment: The eGFR is calculated using the CKD-EPI formula. In most young, healthy individuals the eGFR will be >90 mL/min/1.73m2. The eGFR declines with age. An eGFR of 60-89 may be normal in some populations, particularly the elderly, for whom the CKD-EPI formula has not been extensively validated. Use of the eGFR is not recommended in the following populations: Individuals with unstable creatinine concentrations, including patients and those with serious co-morbid conditions. Patients with extremes in muscle mass or diet. The data above are obtained from the National Kidney Disease Education Program (NKDEP) which additionally recommends that when the eGFR is used in patients with extremes of body mass index for purposes of drug dosing, the eGFR should be multiplied by the estimated BMI. [facility] ELECTROLYTES Calcium Lvl 9.6 mg/dL 8.5 - 10.5 01/23/2018 [facility] ELECTROLYTES CO2 30 meq/L 24 - 32 01/23/2018 [facility] ELECTROLYTES Glucose Lvl 97 mg/dL 70 - 99 01/23/2018 [facility] ELECTROLYTES BUN 19 mg/dL 7 - 22 01/23/2018 [facility] ELECTROLYTES Creatinine Lvl 1.08 mg/dL 0.50 - 1.40 01/23/2018 [facility] ELECTROLYTES Sodium Lvl 141 meq/L 135 - 145 01/23/2018 [facility] ELECTROLYTES Potassium Lvl 5.0 meq/L 3.5 - 5.1 01/23/2018 [facility] ELECTROLYTES Chloride Lvl 105 meq/L 95 - 109 01/23/2018 [facility] INR 0.96 0.85 - 1.17 01/23/2018 [facility] PTT 27.1 s 22.9 - 35.8 01/23/2018 [facility] PT 12.8 s 12.0 - 14.7 01/23/2018 [facility] Platelet 243 K/CMM 133 - 450 01/23/2018 [facility] MPV 8.7 fL 7.4 - 10.4 01/23/2018 [facility] WBC 11.2 K/CMM 3.7 - 10.4 01/23/2018 [facility] RDW 14.0 % 11.5 - 14.5 01/23/2018 [facility] MCHC 33.0 g/dL 32.0 - 36.0 01/23/2018 [facility] MCH 30.2 pg 27.0 - 31.0 01/23/2018 [facility] Hct 38.9 % 36.0 - 48.0 01/23/2018 [facility] MCV 91.7 fL 80.0 - 98.0 01/23/2018 [facility] Hgb 12.8 g/dL 12.0 - 16.0 01/23/2018 [facility] RBC 4.25 M/CMM 4.20 - 5.40 01/23/2018 [facility] Lymphocytes # 1.1 K/CMM 1.0 - 5.5 01/23/2018 [facility] Eosinophils # 1.2 K/CMM 0.0 - 0.5 01/23/2018 [facility] Monocytes # 1.0 K/CMM 0.0 - 0.8 01/23/2018 [facility] HEMATOLOGY Segs-Bands # 7.8 K/CMM 1.5 - 8.1 01/23/2018 [facility] HEMATOLOGY Basophils 0.6 % 0.0 - 1.0 01/23/2018 [facility] HEMATOLOGY Basophils # 0.1 K/CMM 0.0 - 0.2 01/23/2018 [facility] HEMATOLOGY Monocytes 9.2 % 2.0 - 12.0 01/23/2018 [facility] HEMATOLOGY Eosinophils 10.3 % 0.0 - 4.0 01/23/2018 [facility] HEMATOLOGY Lymphocytes 9.9 % 20.0 - 40.0 01/23/2018 [facility] HEMATOLOGY Segs 70.0 % 45.0 - 75.0 01/23/2018 [facility] TUMOR MARKERS CEA 5.0 ng/mL 0.0 - 3.0 01/23/2018 [facility] Vital Signs Vital Sign Value Date Comments Source Respitory Rate 14 07/13/2018 [facility] Temperature Oral (F) 98.2 F 07/13/2018 [facility] Heart Rate 98 07/13/2018 [facility] Systolic (mm Hg) 134 07/13/2018 [facility] Diastolic (mm Hg) 74 07/13/2018 [facility] Systolic (mm Hg) 125 07/13/2018 [facility] Diastolic (mm Hg) 70 07/13/2018 [facility] Temperature Oral (F) 98 F 07/13/2018 [facility] Heart Rate 98 07/13/2018 [facility] Respitory Rate 18 07/13/2018 [facility] Systolic (mm Hg) 126 07/13/2018 [facility] Diastolic (mm Hg) 69 07/13/2018 [facility] Heart Rate 91 07/13/2018 [facility] Respitory Rate 16 07/13/2018 [facility] Temperature Oral (F) 98.1 F 07/13/2018 [facility] BMI Calculated 27.9 07/12/2018 [facility] Weight 73.727 07/12/2018 [facility] Height 162.56 cm 07/12/2018 [facility] BMI Calculated 27.52 06/28/2018 [facility] Weight 72.727 06/28/2018 [facility] Height 162.56 cm 06/28/2018 [facility] Systolic (mm Hg) 136 01/31/2018 [facility] Diastolic (mm Hg) 91 01/31/2018 [facility] Temperature Oral (F) 98.7 F 01/31/2018 [facility] Heart Rate 85 01/31/2018 [facility] Respitory Rate 18 01/31/2018 [facility] Respitory Rate 18 01/31/2018 [facility] Systolic (mm Hg) 144 01/31/2018 [facility] Diastolic (mm Hg) 60 01/31/2018 [facility] Heart Rate 81 01/31/2018 [facility] Temperature Oral (F) 97.9 F 01/31/2018 [facility] Respitory Rate 20 01/31/2018 [facility] Heart Rate 70 01/31/2018 [facility] Temperature Oral (F) 98.4 F 01/31/2018 [facility] Systolic (mm Hg) 130 01/31/2018 [facility] Diastolic (mm Hg) 65 01/31/2018 [facility] Weight 70.511 01/23/2018 [facility] BMI Calculated 26.68 01/23/2018 [facility] Height 162.56 cm 01/23/2018 [facility] Encounters Location Location Details Encounter Type Encounter Number Reason For Visit Attending Provider ADM Date DC Date Status Source [facility] Day Surgery [id number] Bernarda Sumner 01/30/2018 01/31/2018 [facility] Inpatient [id number] Bernarda Sumner 07/12/2018 07/13/2018 [facility] OP Therapy Patients [id number] Bernarda Gonzalesick 11/22/2018 12/22/[facility] Procedures Procedure Code Date Perfomer Comments Source Cataract extraction and insertion of intraocular lens [id number] [facility] Cholecystectomy [id number] [facility] Colonoscopy [id number] [facility] Esophagoduodenostomy [id number] [facility] Hysterectomy [id number] [facility] Operation [id number] [facility] Tonsillectomy [id number] [facility] Cataract extraction and insertion of intraocular lens [id number] [facility] Cholecystectomy [id number] [facility] Colonoscopy [id number] [facility] Esophagoduodenostomy [id number] [facility] Hysterectomy [id number] [facility] Operation [id number] [facility]lect[facility] [id number] [facility]
--- OUTSIDE RECORDS SUMMARY | 2019-02-07 11:16 | XMS REPORT | Clinical Summary ---
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 Uticaria Iodinated Contrast- Oral Other (See Medium 10/13/2015 And Iv Dye Comments) Medications End Date Status Medication Sig Dispensed Refills Start Date Active pantoprazole (PROTONIX) TAKE 1 T PO 3 40 MG EC tablet BID BEFORE A 9 MEAL Active LORAZepam (ATIVAN) 1 MG TK 1 T PO TID 0 tablet 9 Active levothyroxine (SYNTHROID, TK 1 T PO QAM 2 LEVOXYL) 175 mcg tablet OES 9 Active irbesartan (AVAPRO) 300 TK 1 T PO QD 2 MG tablet 9 Active HYDROcodone-acetaminophen TK 1 T PO Q 4 0 (NORCO) 10-325 mg per H PRN PAIN 9 tablet Active gabapentin (NEURONTIN) TAKE 1 T PO 0 600 mg tablet FIVE TIMES 9 DAILY Active furosemide (LASIX) 40 mg TAKE 1 T PO 5 tablet QAM FOR 9 SWELLING LEGS Active fluticasone propionate SPRAY 1 SPRAY 1 (FLONASE) 50 IN EACH 9 mcg/actuation nasal spray NOSTRIL ONCE DAILY Active clotrimazole (LOTRIMIN) 1 REHANA EXT AA 0 % cream BID 9 Active amLODIPine (NORVASC) 10 TAKE 1 T PO 0 mg tablet ONCE A DAY 9 Active Problems No known active problems Encounters Care Team Description Date Type Specialty Gino Crews MD Primary osteoarthritis of left knee (Primary Dx); Chronic pain of left knee 12/11/2018 Office Visit Sports Medicine Gino Crews MD Pain in both knees, unspecified chronicity (Primary Dx); Osteoarthritis of both knees, unspecified osteoarthritis type; Primary osteoarthritis of both knees 11/29/2018 Office Visit Sports Medicine after 02/06/2018 Immunizations Name Dates Previously Given Next Due Pneumococcal Conjugate 03/03/2016 13-Valent Family History Medical History Relation Name Comments No Known Problems Father No Known Problems Mother Relation Name Status Comments Father Mother Social History Date Tobacco Use Types Packs/Day Years Used Never Smoker Smokeless Tobacco: Never Used Alcohol Use Drinks/Week oz/Week Comments No Alcohol Habits Answer Date Recorded How often do you have a drink containing alcohol? Never 11/29/2018 How many drinks containing alcohol do you have on Not asked a typical day when you are drinking? How often do you have six or more drinks on one Not asked occasion? Sex Assigned at Date Recorded Not on file Industry Job Start Date Occupation Not on file Not on file Not on file Travel End Travel History Travel Start No recent travel history available. Last Filed Vital Signs Not on file Plan of Treatment Care Team Description Date Type Specialty Gino Crews MD 2019 [facility] [address] [place] [address] [phone] Chyna Salgado, PT 02/08/2019 Office Visit Physical Therapy Roberto Barbosa MD 2019 [facility] [address] [place] [address] [phone] 02/21/2019 Office Visit Orthopedic Surgery Health Maintenance Due Date Last Done Comments SHINGLES VACCINES (#1) 11/22/1991 65+ PNEUMOCOCCAL VACCINE 03/03/2017 03/03/2016 (2 of 2 - PPSV23) INFLUENZA VACCINE 03/15/2019 Procedures Comments Procedure Name Priority Date/Time Associated Diagnosis [place] ARTHROCENTESIS Routine 12/11/2018 Primary osteoarthritis of ASPIR&/INJ MAJOR JT/BURSA 2:45 PM CDT left knee W/O US Chronic pain of left knee XR KNEE 4+ VW BILATERAL Routine 11/29/2018 Pain in both knees, 2:16 PM CDT unspecified chronicity VT ARTHROCENTESIS Routine 11/29/2018 Primary osteoarthritis of ASPIR&/INJ MAJOR JT/BURSA 2:00 PM CDT both knees W/O US after 02/06/2018 Results * Large Joint Arthrocentesis: knee, L knee (12/11/2018 2:45 PM CDT) Narrative Performed At Gino Crews MD 12/11/20183:41 PM Large Joint Arthrocentesis: knee, L knee Consent given by: patient Site marked: site marked Timeout: Immediately prior to procedure a time out was called to verify the correct patient, procedure, equipment, student support services director and site/side marked as required Supporting Documentation Indications: pain Procedure Details Preparation: Patient was prepped and draped in the usual sterile fashion Location: knee - L knee Left side: Needle size: 20 G Approach: lateral Left knee medications administered: 2 mL bupivacaine 0.25 % (2.5 mg/mL); 80 mg methylPREDNISolone acetate 80 mg/mL; 5 mL lidocaine 10 mg/mL (1 %) Patient tolerance: patient tolerated the procedure well with no immediate complications * XR Knee 4+ Vw Bilateral (11/29/2018 2:16 PM CDT) Specimen Narrative Performed At [facility] Right knee 4 views: [id number] medial and patellofemoral compartment joint space narrowing with subchondral cystic changes.No obvious fractures or dislocations Left knee 4 views: End-stage medial and patellofemoral compartment joint space narrowing.No obvious fractures or dislocations Performing Organization Address City/State/Zipcode Phone Number [facility] [address] [place] [address] * Large Joint Arthrocentesis: knee, R knee (11/29/2018 2:00 PM CDT) Narrative Performed At Gino Crews MD 11/29/20183:14 PM Large Joint Arthrocentesis: knee, R knee Consent given by: patient Site marked: site marked Timeout: Immediately prior to procedure a time out was called to verify the correct patient, procedure, equipment, student support services director and site/side marked as required Supporting Documentation Indications: pain Procedure Details Preparation: Patient was prepped and draped in the usual sterile fashion Location: knee - R knee Right side: Needle size: 20 G Approach: lateral Right knee medications administered: 2 mL bupivacaine 0.5 % (5 mg/mL); 80 mg methylPREDNISolone acetate 80 mg/mL; 5 mL lidocaine 10 mg/mL (1 %) Patient tolerance: patient tolerated the procedure well with no immediate complications after 02/06/2018 Insurance Type Payer Benefit Subscriber ID Effective Phone Address Plan / Dates Group Medicare MEDICARE MEDICARE xxxxxxxxxxx 2006-P PERFECTO, PART A AND resent [place] B Commercial AARP AARP xxxxxxxxxxx 2018-P SUPPLEMENT resent Advance Directives Patient has advance care planning documents on file. For more information, virgil montemayor contact: Perfecto Neville [address] [place] [address]
--- OUTSIDE RECORDS SUMMARY | 2019-02-07 11:16 | XMS REPORT | Summary of Care ---
Author Author [facility] Organization [facility] Address Unknown Phone Unavailable Encounter HQ Travis_[email or web address](FIN) [id number] Date(s): 11/22/18 - 12/21/18 [facility] Discharge Disposition: Home or Self Care Attending Physician: Bernarda Sumner V Vital Signs No data available for this section Problem List Condition Effective Dates Status Health Status Informant Anxiety(Confirmed) Active Arthritis(Confirmed) Active Benign Active hypertension(Confirm ed) History of lung Active cancer(Confirmed) Hypothyroid(Confirme Active d) Bilateral low back Active pain(Confirmed) Acute leg Active pain(Confirmed)1 Rectal Active prolapse(Confirmed) 1Bilateral Allergies, Adverse Reactions, Alerts Substance Reaction Severity Status iodinated radiocontrast Active dyes Food Eggs Active Food Milk/Milk Products Active Medications No data available for this section Results No data available for this section Immunizations No data available for this section Procedures Procedure Date Related Diagnosis Body Site Status Cataract extraction and insertion of Completed intraocular lens Cholecystectomy Completed Colonoscopy Completed Esophagoduodenostomy Completed Hysterectomy Completed Operation Completed Operation Completed Tonsillectomy Completed Social History Social History Type Response Alcohol Current, Type Liquor. Frequency: 1-2 times per month. Smoking Status Former smoker; Type: Cigarettes; Exposure to Tobacco Smoke None; Cigarette Smoking Last 365 Days No; Reg Smoking Cessation Counseling No; Tobacco use per day: 10; Other Tobacco Frequency Stopped smoking in 2010; entered on: 07/12/18 Assessment and Plan No data available for this section
--- OUTSIDE RECORDS SUMMARY | 2019-02-07 11:17 | XMS REPORT | Summary of Care ---
Author Author Organization Address Unknown Phone Unavailable Encounter [facility]O) [id number] Date(s): 07/12/18 - 07/13/18 [address] [place] [address]- [phone] Encounter Diagnosis Rectal prolapse (Final) - Rectal prolapse (Final) - 07/18/18 Essential (primary) hypertension (Final) - Age-related osteoporosis without current pathological fracture (Final) - Personal history of other malignant neoplasm of bronchus and lung (Final) - Discharge Disposition: Home or Self Care Attending Physician: Bernarda Sumner V Admitting Physician: Bernarda Sumner V Referring Physician: Bernarda Sumner V Vital Signs 1 2 3 Most recent to oldest [Reference Range]: 162.56 cm (07/12/18 4:52 PM) 162.56 cm (06/28/18 2:51 PM) Height 98.2 DegF (07/13/18 7:55 AM) 98 DegF (07/13/18 3:37 AM) 98.1 DegF (07/12/18 11:35 PM) Temperature Oral [96.4-99.1 DegF] 134/74 mmHg (07/13/18 7:55 AM) 125/70 mmHg (07/13/18 3:37 AM) 126/69 mmHg (07/12/18 11:35 PM) Blood Pressure [90-140/60-90 mmHg] 14 BRMIN (07/13/18 8:26 AM) 18 BRMIN (07/13/18 3:37 AM) 16 BRMIN (07/12/18 11:35 PM) Respiratory Rate [14-20 BRMIN] 98 bpm (07/13/18 7:55 AM) 98 bpm (07/13/18 3:37 AM) 91 bpm (07/12/18 11:35 PM) Peripheral Pulse Rate [60-100 bpm] 73.727 kg (07/12/18 4:52 PM) 72.727 kg (06/28/18 2:51 PM) Weight 27.9 m2 (07/12/18 4:52 PM) 27.52 m2 (06/28/18 2:51 PM) Body Mass Index Problem List Condition Effective Dates Status Health Status Informant Anxiety(Confirmed) Active Arthritis(Confirmed) Active Benign Active hypertension(Confirm ed) History of lung Active cancer(Confirmed) Hypothyroid(Confirme Active d) Bilateral low back Active pain(Confirmed) Acute leg Active pain(Confirmed)1 Rectal Active prolapse(Confirmed) 1Bilateral Allergies, Adverse Reactions, Alerts Substance Reaction Severity Status iodinated radiocontrast Active dyes Food Eggs Active Food Milk/Milk Products Active Medications acetaminophen 500 mg oral tablet 1,000 mg=2 tab, PO, Q6H, 0 Refill(s) Start Date: 07/13/18 Status: Ordered albuterol-ipratropium 2.5-0.5 mg inhalation solution 3 mL, Route: NEB, Dosing Weight 72.727, kg, ONCE, STAT, Start date: 07/12/18 12: 28:00 BILLING AND ACCOUNTING STAFF ASSISTANT, Stop date: 07/12/18 12:28:00 BILLING AND ACCOUNTING STAFF ASSISTANT Start Date: 07/12/18 Stop Date: 07/12/18 Status: Discontinued amLODIPine 2.5 mg, 1 tab, Route: PO, Drug form: TAB, Daily, Dosing Weight 72.727, kg, Start date: 07/13/18 9:00:00 BILLING AND ACCOUNTING STAFF ASSISTANT, Duration: 30 day, Stop date: 08/11/18 9:00:00 BILLING AND ACCOUNTING STAFF ASSISTANT Notes: (Same as: Norvasc) Start Date: 07/13/18 Stop Date: 07/13/18 Status: Discontinued ANES acetaminophen 1,000 mg, Route: IVPB, Drug form: INJ, ONCE, Dosing Weight 72.727, kg, PRN Pain Score 1-3, Start date: 07/12/18 14:47:00 BILLING AND ACCOUNTING STAFF ASSISTANT Start Date: 07/12/18 Stop Date: 07/12/18 Status: Discontinued ANES flumazenil 0.2 mg, Route: IVP, PRN, Dosing Weight 72.727, kg, PRN Benzodiazepine Reversal, Initial dose, Start date: 07/12/18 14:47:00 BILLING AND ACCOUNTING STAFF ASSISTANT, Duration: 30 day, Stop date: 14:46:00 BILLING AND ACCOUNTING STAFF ASSISTANT Start Date: 07/12/18 Stop Date: 07/12/18 Status: Discontinued ANES HYDROmorphone 0.5 mg, Route: IVP, Q5Min, Dosing Weight 72.727, kg, PRN Pain Score 7-10, Start date: 07/12/18 14:47:00 BILLING AND ACCOUNTING STAFF ASSISTANT, Duration: 4 doses or times, Stop date: Limited # of times Start Date: 07/12/18 Stop Date: 07/12/18 Status: Discontinued ANES labetalol 10 mg, Route: IVP, Q5Min, Dosing Weight 72.727, kg, PRN Elevated BP, Start date: 07/12/18 14:47:00 BILLING AND ACCOUNTING STAFF ASSISTANT, Duration: 5 doses or times, Stop date: Limited # of times Start Date: 07/12/18 Stop Date: 07/12/18 Status: Discontinued ANES morphine Sulfate 2 mg, Route: IVP, Q5Min, Dosing Weight 72.727, kg, PRN Pain Score 4-6, Start franca e: 07/12/18 14:47:00 BILLING AND ACCOUNTING STAFF ASSISTANT, Duration: 5 doses or times, Stop date: Limited # of ti mes Start Date: 07/12/18 Stop Date: 07/12/18 Status: Discontinued ANES naloxone 0.4 mg, Route: IVP, Q2MIN, Dosing Weight 72.727, kg, PRN Narcotic Reversal, Star t date: 07/12/18 14:47:00 BILLING AND ACCOUNTING STAFF ASSISTANT, Duration: 8 doses or times, Stop date: Limited # of times Start Date: 07/12/18 Stop Date: 07/12/18 Status: Discontinued ANES ondansetron 4 mg, Route: IVP, ONCE, Dosing Weight 72.727, kg, PRN Nausea & Vomiting, Start date: 07/12/18 14:47:00 BILLING AND ACCOUNTING STAFF ASSISTANT Start Date: 07/12/18 Stop Date: 07/12/18 Status: Discontinued bupivacaine 0.5%-epinephrine 1:200,000 injectable solution 30 mL, Route: InFILtration(local), Drug Form: INJ, Dosing Weight 72.727, kg, ONC E, Start date: 07/12/18 13:07:00 BILLING AND ACCOUNTING STAFF ASSISTANT, Stop date: 07/12/18 13:07:00 BILLING AND ACCOUNTING STAFF ASSISTANT Notes: (bupivacaine-epi 0.5%-1:200,000 30 ml VL) Not for use in continuous infu claudia. (Same As: Marcaine w/Epi) Start Date: 07/12/18 Stop Date: 07/12/18 Status: Completed ceFAZolin (ANES) Route: IV, Drug form: INJ, ONCE, Stop date: 07/12/18 14:24:00 BILLING AND ACCOUNTING STAFF ASSISTANT Start Date: 07/12/18 Stop Date: 07/12/18 Status: Completed dexamethasone (ANES) Route: IV, Drug form: INJ, ONCE, Stop date: 07/12/18 13:28:00 BILLING AND ACCOUNTING STAFF ASSISTANT Start Date: 07/12/18 Stop Date: 07/12/18 Status: Completed diphenhydrAMINE 25 mg, 1 tab, Route: PO, Drug form: TAB, Bedtime, Dosing Weight 72.727, kg, PRN Insomnia, Start date: 07/12/18 14:15:00 BILLING AND ACCOUNTING STAFF ASSISTANT, Duration: 30 day, Stop date: 14:14:00 BILLING AND ACCOUNTING STAFF ASSISTANT Start Date: 07/12/18 Stop Date: 07/13/18 Status: Discontinued Exparel 20 mL, Route: InFILtration(local), Drug Form: INJ, Dosing Weight 72.727, kg, ONC ALL, For Hemorrhoidectomy, Start date: 07/12/18 13:00:00 BILLING AND ACCOUNTING STAFF ASSISTANT, Duration: 30 day, Stop date: 08/11/18 12:59:00 BILLING AND ACCOUNTING STAFF ASSISTANT Notes: (Same as: Exparel) NOT FOR IV use Postoperative analgesia: Infi ltration (local): Dose is based on surgical site and volume required to cover th e area (in general, the maximum total dose is 266 mg).Bunionectomy: 7 mL into th e tissues surrounding the osteotomy and 1 mL into the subcutaneous tissue of the surgical site (total dose=8 mL [106 mg])Hemorrhoidectomy: 30 mL (20 mL vial dil uted with 10 mL NS) divided and administered as 6 injections of 5 mL each (total dose=30 mL [266 mg]) Start Date: 07/12/18 Stop Date: 07/13/18 Status: Discontinued famotidine 20 mg, 1 tab, Route: PO, Drug form: TAB, Q12H, Dosing Weight 72.727, kg, Start d ate: 07/12/18 21:00:00 BILLING AND ACCOUNTING STAFF ASSISTANT, Duration: 30 day, Stop date: 08/11/18 9:00:00 BILLING AND ACCOUNTING STAFF ASSISTANT Notes: (Same as: Pepcid) Start Date: 07/12/18 Stop Date: 07/13/18 Status: Discontinued fentaNYL (ANES) Route: IV, Drug form: INJ, ONCE, Stop date: 07/12/18 13:18:00 BILLING AND ACCOUNTING STAFF ASSISTANT Start Date: 07/12/18 Stop Date: 07/12/18 Status: Completed furosemide See Instructions, 10 mg Daily, 0 Refill(s) Start Date: 06/28/18 Status: Ordered heparin 5,000 unit, 1 mL, Route: SUB-Q, Drug form: INJ, Q8H, Dosing Weight 72.727, kg, S tart date: 07/13/18 8:00:00 BILLING AND ACCOUNTING STAFF ASSISTANT, Stop date: 08/12/18 0:00:00 BILLING AND ACCOUNTING STAFF ASSISTANT Notes: porcine heparin Start Date: 07/13/18 Stop Date: 07/13/18 Status: Discontinued heparin 5,000 unit, 1 mL, Route: SUB-Q, Drug form: INJ, Q8H, Dosing Weight 72.727, kg, S tart date: 07/12/18 16:00:00 BILLING AND ACCOUNTING STAFF ASSISTANT, Stop date: 08/11/18 8:00:00 BILLING AND ACCOUNTING STAFF ASSISTANT Notes: porcine heparin Start Date: 07/12/18 Stop Date: 07/12/18 Status: Discontinued ketOROLAC (ANES) IV, ONCE Start Date: 07/12/18 Stop Date: 07/12/18 Status: Completed Lactated Ringers Injection IV (ANES) 1000 mL Route: IV, Total Volume: 1,000, Start date: 07/12/18 12:44:00 BILLING AND ACCOUNTING STAFF ASSISTANT, Stop date: 13:44:00 BILLING AND ACCOUNTING STAFF ASSISTANT Start Date: 07/12/18 Stop Date: 07/12/18 Status: Completed Lactated Ringers Injection IV 1000 mL 1,000 mL, Rate: 25 ml/hr, Infuse over: 40 hr, Route: IV, Dosing Weight 72.727 kg , Total Volume: 1,000, Start date: 07/12/18 12:28:00 BILLING AND ACCOUNTING STAFF ASSISTANT, Duration: 30 day, Stop date: 08/11/18 12:27:00 BILLING AND ACCOUNTING STAFF ASSISTANT, 1.83, m2 Start Date: 07/12/18 Stop Date: 07/12/18 Status: Discontinued Lactated Ringers Injection IV 1000 mL 1,000 mL, Rate: 125 ml/hr, Infuse over: 8 hr, Route: IV, Dosing Weight 72.727 kg , Total Volume: 1,000, Start date: 07/12/18 14:47:00 BILLING AND ACCOUNTING STAFF ASSISTANT, Duration: 30 day, Stop date: 08/11/18 14:46:00 BILLING AND ACCOUNTING STAFF ASSISTANT, 1.83, m2 Start Date: 07/12/18 Stop Date: 07/12/18 Status: Discontinued lidocaine (ANES) Route: IV, Drug form: INJ, ONCE, Stop date: 07/12/18 13:28:00 BILLING AND ACCOUNTING STAFF ASSISTANT Start Date: 07/12/18 Stop Date: 07/12/18 Status: Completed lidocaine 2 gm in D5W 250 ml Premix (titrate) 2 gm 2 gm, 250 mL, Rate: Infuse as directed, Dosing Weight 72.727, kg, Route: IV, Tot al Volume: 250 mL, Start date: 07/12/18 14:15:00 BILLING AND ACCOUNTING STAFF ASSISTANT, Duration: 30 day, Stop franca e: 08/11/18 14:14:00 BILLING AND ACCOUNTING STAFF ASSISTANT, Replace Every: 24 hr Start Date: 07/12/18 Stop Date: 07/12/18 Status: Discontinued LORazepam See Instructions, 0 Refill(s) Start Date: 06/28/18 Status: Ordered metroNIDAZOLE (ANES) Route: IV, Drug form: INJ, ONCE, Stop date: 07/12/18 13:53:00 BILLING AND ACCOUNTING STAFF ASSISTANT Start Date: 07/12/18 Stop Date: 07/12/18 Status: Completed midazolam (ANES) Route: IV, Drug form: SOLN, ONCE, Stop date: 07/12/18 13:18:00 BILLING AND ACCOUNTING STAFF ASSISTANT Start Date: 07/12/18 Stop Date: 07/12/18 Status: Completed ondansetron 4 mg, 2 mL, Route: IVP, Drug form: INJ, Q6H, Dosing Weight 72.727, kg, PRN Nause a & Vomiting, Start date: 07/12/18 14:15:00 BILLING AND ACCOUNTING STAFF ASSISTANT, Duration: 30 day, Stop date: 08/11/18 14:14:00 BILLING AND ACCOUNTING STAFF ASSISTANT Notes: (Same as: Zofran) MEDICATION WASTE Product Size: 4 mgProduct Was adebayo: ___ mg Start Date: 07/12/18 Stop Date: 07/13/18 Status: Discontinued ondansetron (ANES) Route: IV, Drug form: INJ, ONCE, Stop date: 07/12/18 13:33:00 BILLING AND ACCOUNTING STAFF ASSISTANT Start Date: 07/12/18 Stop Date: 07/12/18 Status: Completed Precedex 200 microgram in NS 50 mL (Titrate.) IV 200 microgram 200 microgram, 50 mL, Rate: Titrate, Start Dose: 0.02 microgram/kg/hr, Titration : 0.1 microgram/kg/hr every 30 min, Goal(s): keep patient comfortable, Max Dose: 1.5 microgram/kg/hr, Route: IV, Dosing Weight 72.727 kg, Total Volume: 50, Start date: . Start Date: 07/12/18 Stop Date: 07/12/18 Status: Discontinued propofol (ANES) Route: IV, Drug form: INJ, ONCE, Stop date: 07/12/18 13:28:00 BILLING AND ACCOUNTING STAFF ASSISTANT Start Date: 07/12/18 Stop Date: 07/12/18 Status: Completed Synthroid PO, Daily, 0 Refill(s) Start Date: 06/28/18 Status: Ordered temazepam PO, Bedtime, 0 Refill(s) Start Date: 06/28/18 Status: Ordered Tylenol 1,000 mg, 2 tab, Route: PO, Drug form: TAB, Q6H, Dosing Weight 72.727, kg, Start date: 07/12/18 18:00:00 BILLING AND ACCOUNTING STAFF ASSISTANT, Duration: 30 day, Stop date: 08/11/18 12:00:00 BILLING AND ACCOUNTING STAFF ASSISTANT Notes: Max acetaminophen 4000 mg/day (4 gm/day). (Same as: Tylenol Extra Streng th) Start Date: 07/12/18 Stop Date: 07/13/18 Status: Discontinued valsartan 80 mg, 1 tab, Route: PO, Drug form: TAB, Daily, Dosing Weight 72.727, kg, Start date: 07/13/18 9:00:00 BILLING AND ACCOUNTING STAFF ASSISTANT, Duration: 30 day, Stop date: 08/11/18 9:00:00 BILLING AND ACCOUNTING STAFF ASSISTANT Notes: Same as Coy Start Date: 07/13/18 Stop Date: 07/13/18 Status: Discontinued Results Most recent to 1 oldest [Reference Range]: Neutrophils # 5.8 K/CMM [1.5-8.1 K/CMM] (06/28/18 3:12 PM) Lymphocytes # 1.3 K/CMM [1.0-5.5 K/CMM] (06/28/18 3:12 PM) Monocytes # [0.0-0.8 0.9 K/CMM K/CMM] *HI* (06/28/18 3:12 PM) Eosinophils # 0.5 K/CMM [0.0-0.5 K/CMM] (06/28/18 3:12 PM) Basophils # [0.0-0.2 0.1 K/CMM K/CMM] (06/28/18 3:12 PM) AGAP [10.0-20.0 12.0 mEq/L mEq/L] (06/28/18 3:12 PM) Basophils [0.0-1.0 1.1 % %] *HI* (06/28/18 3:12 PM) Chloride Lvl [95-109 101 mEq/L mEq/L] (06/28/18 3:12 PM) CO2 [24-32 mEq/L] 28 mEq/L (06/28/18 3:12 PM) Eosinophils [0.0-4.0 6.1 % %] *HI* (06/28/18 3:12 PM) Hct [36.0-48.0 %] 37.0 % (06/28/18 3:12 PM) Hgb [12.0-16.0 g/dL] 12.3 g/dL (06/28/18 3:12 PM) INR [0.85-1.17] 1.01 (06/28/18 3:12 PM) Potassium Lvl 5.0 mEq/L [3.5-5.1 mEq/L] (06/28/18 3:12 PM) Lymphocytes 14.7 % [20.0-40.0 %] *LOW* (06/28/18 3:12 PM) MCH [27.0-31.0 pg] 29.3 pg (06/28/18 3:12 PM) MCHC [32.0-36.0 33.2 g/dL g/dL] (06/28/18 3:12 PM) MCV [80.0-98.0 fL] 88.1 fL (06/28/18 3:12 PM) Monocytes [2.0-12.0 10.7 % %] (06/28/18 3:12 PM) MPV [7.4-10.4 fL] 8.9 fL (06/28/18 3:12 PM) Sodium Lvl [135-145 136 mEq/L mEq/L] (06/28/18 3:12 PM) Platelet [133-450 273 K/CMM K/CMM] (06/28/18 3:12 PM) Segs [45.0-75.0 %] 67.4 % (06/28/18 3:12 PM) PT [12.0-14.7 13.3 seconds seconds] (06/28/18 3:12 PM) PTT [22.9-35.8 30.4 seconds seconds] (06/28/18 3:12 PM) RBC [4.20-5.40 4.20 M/CMM M/CMM] (06/28/18 3:12 PM) RDW [11.5-14.5 %] 13.7 % (06/28/18 3:12 PM) UA Bacteria [None Occasional /HPF Seen /HPF] *NA* (06/28/18 3:12 PM) UA Bili [Negative] Negative *NA* (06/28/18 3:12 PM) UA Blood [Negative] Negative (06/28/18 3:12 PM) UA Color [Yellow] Yellow *NA* (06/28/18 3:12 PM) UA Glucose Negative [Negative] (06/28/18 3:12 PM) UA Hyal Cast [0-2 1 /LPF /LPF] (06/28/18 3:12 PM) UA Ketones Negative [Negative] *NA* (06/28/18 3:12 PM) UA Leuk Est Small [Negative] *ABN* (06/28/18 3:12 PM) UA Nitrite Positive [Negative] *ABN* (06/28/18 3:12 PM) UA pH [5.0-8.0] 7.0 (06/28/18 3:12 PM) UA Protein Negative [Negative] (06/28/18 3:12 PM) UA RBC [0-2 /HPF] 1 /HPF (06/28/18 3:12 PM) UA Spec Grav 1.010 [<=1.030] (06/28/18 3:12 PM) UA Sq Epi [Few /LPF] Occasional /LPF *NA* (06/28/18 3:12 PM) UA Turbidity [Clear] Clear (06/28/18 3:12 PM) UA Urobilinogen 0.2 EU/dL [0.1-1.0 EU/dL] (06/28/18 3:12 PM) UA WBC [0-5 /HPF] 7 /HPF *HI* (06/28/18 3:12 PM) UA Boaz Yeast [None Occasional /HPF Seen /HPF] *ABN* (06/28/18 3:12 PM) WBC [3.7-10.4 K/CMM] 8.6 K/CMM (06/28/18 3:12 PM) Immunizations No data available for this section [...]
--- OUTSIDE RECORDS SUMMARY | 2019-02-07 11:17 | XMS REPORT | Summary of Care ---
Author Author [facility] Organization [facility] Address Unknown Phone Unavailable Encounter [employer] Yin(LINO) [id number] Date(s): 01/30/18 - 01/31/18 [facility] [address] [place] [address]- Discharge Disposition: Home or Self Care Attending Physician: Bernarda Sumner V Referring Physician: Bernarda Sumner V Vital Signs 1 2 3 Most recent to oldest [Reference Range]: 162.56 cm (01/23/18 10:54 AM) Height 98.7 DegF (01/31/18 3:35 PM) 97.9 DegF (01/31/18 11:25 AM) 98.4 DegF (01/31/18 7:15 AM) Temperature Oral [96.4-99.1 DegF] 136/91 mmHg (01/31/18 3:35 PM) 144/60 mmHg *HI* (01/31/18 11:25 AM) 130/65 mmHg (01/31/18 7:15 AM) Blood Pressure [90-140/60-90 mmHg] 18 BRMIN (01/31/18 3:35 PM) 18 BRMIN (01/31/18 11:25 AM) 20 BRMIN (01/31/18 8:22 AM) Respiratory Rate [14-20 BRMIN] 85 bpm (01/31/18 3:35 PM) 81 bpm (01/31/18 11:25 AM) 70 bpm (01/31/18 7:15 AM) Peripheral Pulse Rate [60-100 bpm] 70.511 kg (01/23/18 10:54 AM) Weight 26.68 m2 (01/23/18 10:54 AM) Body Mass Index Problem List Condition Effective Dates Status Health Status Informant Anxiety(Confirmed) Active Arthritis(Confirmed) Active Benign Active hypertension(Confirm ed) History of lung Active cancer(Confirmed) Hypothyroid(Confirme Active d) Bilateral low back Active pain(Confirmed) Acute leg Active pain(Confirmed)1 Rectal Active prolapse(Confirmed) 1Bilateral Allergies, Adverse Reactions, Alerts Substance Reaction Severity Status iodinated radiocontrast Active dyes Medications acetaminophen-hydrocodone 1 tab, Route: PO, Drug Form: TAB, Q4H, PRN Pain Score 6-10, Start date: 01/30/18 19:13:00 CDT, Duration: 30 day, Stop date: 03/01/18 19:12:00 CDT Notes: Same as [place] 325-7.5mg Do not exceed 4gm/day of acetaminophen. Start Date: 01/30/18 Stop Date: 01/31/18 Status: Discontinued Amidate (ANES) Route: IV, Drug form: INJ, ONCE, Stop date: 01/30/18 13:35:00 CDT Start Date: 01/30/18 Stop Date: 01/30/18 Status: Completed amLODIPine 2.5 mg, 1 tab, Route: PO, Drug form: TAB, Daily, Dosing Weight 70.511, kg, Start date: 01/31/18 9:00:00 CDT, Duration: 30 day, Stop date: 03/01/18 9:00:00 CDT Notes: (Same as: Dc) Start Date: 01/31/18 Stop Date: 01/31/18 Status: Discontinued amLODIPine 2.5 mg oral tablet 2.5 mg=1 tab, PO, Daily, # 30 tab, 0 Refill(s) Start Date: 01/23/18 Status: Ordered ANES fentaNYL 50 microgram, Route: IVP, Q5Min, Dosing Weight 70.511, kg, PRN Pain Score 7-10, Priority: Routine, Start date: 01/30/18 15:24:00 CDT, Duration: 2 doses or times , Stop date: Limited # of times Start Date: 01/30/18 Stop Date: 01/30/18 Status: Completed ANES fentaNYL 25 microgram, Route: IVP, Q5Min, Dosing Weight 70.511, kg, PRN Pain Score 4-6, P riority: Routine, Start date: 01/30/18 15:23:00 CDT, Duration: 4 doses or times, Stop date: Limited # of times Start Date: 01/30/18 Stop Date: 01/30/18 Status: Discontinued ANES flumazenil 0.2 mg, Route: IVP, PRN, Dosing Weight 70.511, kg, PRN Benzodiazepine Reversal, Initial dose, Start date: 01/30/18 15:23:00 CDT, Duration: 30 day, Stop date: 15:22:00 CDT Start Date: 01/30/18 Stop Date: 01/30/18 Status: Discontinued ANES HYDROmorphone 0.5 mg, Route: IVP, Q5Min, Dosing Weight 70.511, kg, PRN Pain Score 7-10, Start date: 01/30/18 15:23:00 CDT, Duration: 4 doses or times, Stop date: Limited # of times Start Date: 01/30/18 Stop Date: 01/30/18 Status: Discontinued ANES morphine Sulfate 4 mg, Route: IVP, Q5Min, Dosing Weight 70.511, kg, PRN Pain Score 7-10, Start da te: 01/30/18 15:23:00 CDT, Duration: 3 doses or times, Stop date: Limited # of t imes Start Date: 01/30/18 Stop Date: 01/30/18 Status: Discontinued ANES naloxone 0.4 mg, Route: IVP, Q2MIN, Dosing Weight 70.511, kg, PRN Narcotic Reversal, Star t date: 01/30/18 15:23:00 CDT, Duration: 8 doses or times, Stop date: Limited # of times Start Date: 01/30/18 Stop Date: 01/30/18 Status: Discontinued ANES ondansetron 4 mg, Route: IVP, ONCE, Dosing Weight 70.511, kg, PRN Nausea & Vomiting, Start date: 01/30/18 15:23:00 CDT Start Date: 01/30/18 Stop Date: 01/30/18 Status: Completed ANES oxyCODONE 10 mg, Route: PO, Drug form: TAB, Q4H, Dosing Weight 70.511, kg, PRN Pain Score 7-10, Start date: 01/30/18 15:23:00 CDT, Duration: 30 day, Stop date: 03/01/18 1 5:22:00 CDT Start Date: 01/30/18 Stop Date: 01/30/18 Status: Discontinued ceFAZolin (ANES) Route: IV, Drug form: INJ, ONCE, Stop date: 01/30/18 13:25:00 CDT Start Date: 01/30/18 Stop Date: 01/30/18 Status: Completed ceFAZolin (SCIP) 1 gm, 100 mL, Route: IVPB, Drug form: INJ, Q8H, Dosing Weight 70.511, kg, Start date: 01/30/18 16:00:00 CDT, Duration: 1 doses or times, Stop date: 01/30/18 16: 00:00 CDT, ABX Indication: Surgical Prophylaxis Start Date: 01/30/18 Stop Date: 01/30/18 Status: Deleted ceFAZolin (SCIP) + sterile water 10 mL 1 gm, Route: IVP, Q8H, Dosing Weight 70.511, kg, Start date: 01/30/18 21:00:00 C DT, Duration: 1 doses or times, Stop date: 01/30/18 21:00:00 CDT, ABX Indication : Surgical Prophylaxis Notes: (Same As: Rekha Marroquinzojerrica) MEDICATION WASTE Product Size: 1000 mgP roduct Wasted: ___ mg Start Date: 01/30/18 Stop Date: 01/30/18 Status: Completed Dilaudid 1 mg, 0.5 tab, Route: PO, Drug form: TAB, Q4H, Dosing Weight 70.511, kg, PRN Nevaeh n Score 7-10, Start date: 01/30/18 15:07:00 CDT, Stop date: 03/01/18 15:06:00 CD T Notes: (Same as: Dilaudid) Start Date: 01/30/18 Stop Date: 01/31/18 Status: Discontinued diphenhydrAMINE 25 mg, 1 tab, Route: PO, Drug form: TAB, Bedtime, Dosing Weight 70.511, kg, PRN Insomnia, Start date: 01/30/18 15:07:00 CDT, Duration: 30 day, Stop date: 15:06:00 CDT Start Date: 01/30/18 Stop Date: 01/31/18 Status: Discontinued enoxaparin 40 mg, 0.4 mL, Route: SUB-Q, Drug form: INJ, [id number], Dosing Weight 70.511, kg, Start date: 01/30/18 16:00:00 CDT, Duration: 30 day, Stop date: 02/28/18 16:00: 00 CDT Notes: (Same as: Lovenox) Start Date: 01/30/18 Stop Date: 01/30/18 Status: Deleted famotidine 20 mg, 1 tab, Route: PO, Drug form: TAB, Q24H, Dosing Weight 70.511, kg, Start d ate: 01/30/18 17:00:00 CDT, Duration: 30 day, Stop date: 02/28/18 17:00:00 CDT Notes: (Same as: Pepcid) Start Date: 01/30/18 Stop Date: 01/31/18 Status: Discontinued fentaNYL (ANES) Route: IV, Drug form: INJ, ONCE, Stop date: 01/30/18 13:25:00 CDT Start Date: 01/30/18 Stop Date: 01/30/18 Status: Completed gabapentin 300 mg oral capsule 300 mg=1 cap, PO, TID, # 90 cap, 0 Refill(s) Start Date: 01/23/18 Status: Ordered gabapentin 300 mg oral capsule 200 mg, 2 cap, Route: PO, Drug form: CAP, Q12H, Dosing Weight 70.511, kg, (CrCl > 60 ml/min), Start date: 01/30/18 16:00:00 CDT, Duration: 30 day, Stop date: 03/01/18 9:00:00 CDT Notes: (Same as: Neurontin) Start Date: 01/30/18 Stop Date: 01/31/18 Status: Discontinued HYDROcodone 40 mg oral capsule, extended release 40 mg=1 cap, PO, Q12H, 0 Refill(s) Start Date: 01/23/18 Status: Ordered HYDROcodone 40 mg oral capsule, extended release HYDROcodone 40 mg oral capsule, extended release, 40 mg, Route: PO, Q12H, 21:00:00 CDT, Duration: 30 day, Stop date: 03/01/18 9:00:00 CDT Start Date: 01/30/18 Stop Date: 01/30/18 Status: Canceled Lactated Ringers Injection IV (ANES) 250 mL Route: IV, Total Volume: 250, Start date: 01/30/18 12:34:00 CDT, Stop date: 01/13 04/01 13:34:00 CDT Start Date: 01/30/18 Stop Date: 01/30/18 Status: Completed Lactated Ringers Injection IV 1,000 mL 1,000 mL, Rate: 50 ml/hr, Infuse over: 20 hr, Route: IV, Dosing Weight 70.511 kg , Total Volume: 1,000, Start date: 01/30/18 15:07:00 CDT, Duration: 30 day, Stop date: 03/01/18 15:06:00 CDT, 1.8, m2 Start Date: 01/30/18 Stop Date: 01/31/18 Status: Discontinued Lactated Ringers Injection IV 1000 mL 1,000 mL, Rate: 25 ml/hr, Infuse over: 40 hr, Route: IV, Dosing Weight 70.511 kg , Total Volume: 1,000, Start date: 01/30/18 11:49:00 CDT, Duration: 30 day, Stop date: 03/01/18 11:48:00 CDT, 1.8, m2 Start Date: 01/30/18 Stop Date: 01/30/18 Status: Discontinued Lactated Ringers IV 250 mL 250 mL, Rate: 25 ml/hr, Infuse over: 10 hr, Route: IV, Dosing Weight 70.511 kg, Total Volume: 250, Start date: 01/30/18 11:45:00 CDT, Duration: 1 doses or times , Stop date: 01/30/18 21:44:00 CDT, 1.8, m2 Start Date: 01/30/18 Stop Date: 01/30/18 Status: Completed lidocaine (ANES) Route: IV, Drug form: INJ, ONCE, Stop date: 01/30/18 13:30:00 CDT Start Date: 01/30/18 Stop Date: 01/30/18 Status: Completed Lovenox 40 mg, 0.4 mL, Route: SUB-Q, Drug form: INJ, [id number], Dosing Weight 70.511, kg, Start date: 01/31/18 9:00:00 CDT, Duration: 30 day, Stop date: 03/01/18 9:00:00 CDT Notes: (Same as: Lovenox) Start Date: 01/31/18 Stop Date: 01/31/18 Status: Discontinued methocarbamol + Sodium Chloride 0.9% IV 100 mL 750 mg, 7.5 mL, Route: IVPB, Drug form: INJ, Q6H, Dosing Weight 70.511, kg, Star t date: 01/30/18 18:00:00 CDT, Duration: 30 day, Stop date: 03/01/18 8:00:00 CDT Notes: (Same as:Robaxin) Start Date: 01/30/18 Stop Date: 01/31/18 Status: Discontinued metroNIDAZOLE (ANES) Route: IV, Drug form: INJ, ONCE, Stop date: 01/30/18 13:40:00 CDT Start Date: 01/30/18 Stop Date: 01/30/18 Status: Completed metroNIDAZOLE (SCIP) 500 mg, 100 mL, Route: IVPB, Drug form: INJ, Q8H, Dosing Weight 70.511, kg, Star t date: 01/30/18 16:00:00 CDT, Duration: 1 doses or times, Stop date: 01/30/18 1 6:00:00 CDT, ABX Indication: Surgical Prophylaxis Notes: (Same as: Flagyl) Avoid alcohol. Start Date: 01/30/18 Stop Date: 01/30/18 Status: Deleted metroNIDAZOLE (SCIP) 500 mg, 100 mL, Route: IVPB, Drug form: INJ, Q8H, Dosing Weight 70.511, kg, Star t date: 01/30/18 20:00:00 CDT, Duration: 1 doses or times, Stop date: 01/30/18 2 0:00:00 CDT, ABX Indication: Surgical Prophylaxis Notes: (Same as: Flagyl) Avoid alcohol. Start Date: 01/30/18 Stop Date: 01/30/18 Status: Completed midazolam (ANES) Route: IV, Drug form: SOLN, ONCE, Stop date: 01/30/18 13:35:00 CDT Start Date: 01/30/18 Stop Date: 01/30/18 Status: Completed naproxen 500 mg, 1 tab, Route: PO, Drug form: TAB, BID, Dosing Weight 70.511, kg, Start d ate: 01/30/18 17:00:00 CDT, Duration: 30 day, Stop date: 03/01/18 9:00:00 CDT Notes: (Same as: Naprosyn) Take with food. Start Date: 01/30/18 Stop Date: 01/31/18 Status: Discontinued [place] 7.5/325 oral tablet 1 tab, PO, Q6H, PRN Pain Score 7-10, # 20 tab, 0 Refill(s), given to patient Start Date: 01/31/18 Stop Date: 02/10/18 Status: Ordered Ofirmev 1,000 mg, 100 mL, Route: IVPB, Drug form: INJ, Q6H, Dosing Weight 70.511, kg, fo r > or=50 kg, Start date: 01/30/18 18:00:00 CDT, Duration: 30 day, Stop date: 03/01/18 12:00:00 CDT Notes: Infuse over 15 minutesDo not exceed 4gm/day of acetaminophen MEDICAT ION WASTE Product Size: 1000 mgProduct Wasted: ___ mg Start Date: 01/30/18 Stop Date: 01/31/18 Status: Discontinued Ofirmev 1,000 mg, 31.23 mL, Route: PO, Drug form: LIQ, Q6H, Dosing Weight 70.511, kg, fo r > or=50 kg, Start date: 01/31/18 12:00:00 CDT, Duration: 30 day, Stop date: 03/02/18 6:00:00 CDT Notes: Max [id number]=0592gr/day (4 gm/day). (Same as: Tylenol) Start Date: 01/31/18 Stop Date: 01/31/18 Status: Discontinued ondansetron 4 mg, 2 mL, Route: IVP, Drug form: INJ, Q6H, Dosing Weight 70.511, kg, PRN Nause a & Vomiting, Start date: 01/30/18 15:07:00 CDT, Duration: 30 day, Stop date: 03/01/18 15:06:00 CDT Notes: (Same as: Zofran) MEDICATION WASTE Product Size: 4 mgProduct Was adebayo: ___ mg Start Date: 01/30/18 Stop Date: 01/31/18 Status: Discontinued propofol (ANES) Route: IV, Drug form: INJ, ONCE, Stop date: 01/30/18 13:25:00 CDT Start Date: 01/30/18 Stop Date: 01/30/18 Status: Completed Protonix 40 mg, 1 tab, Route: PO, Drug form: ECTAB, Daily, Dosing Weight 70.511, kg, Star t date: 01/31/18 9:00:00 CDT, Duration: 30 day, Stop date: 03/01/18 9:00:00 CDT Notes: Tablet should not be chewed or crushed.(Same as: Protonix) Start Date: 01/31/18 Stop Date: 01/31/18 Status: Discontinued Protonix 40 mg oral enteric coated tablet 40 mg=1 tab, PO, Daily, # 30 tab, 0 Refill(s) Start Date: 01/23/18 Status: Ordered rocuronium (ANES) Route: IV, Drug form: INJ, ONCE, Stop date: 01/30/18 13:30:00 CDT Start Date: 01/30/18 Stop Date: 01/30/18 Status: Completed valsartan 80 mg, 1 tab, Route: PO, Drug form: TAB, Daily, Dosing Weight 70.511, kg, Start date: 01/31/18 9:00:00 CDT, Duration: 30 day, Stop date: 03/01/18 9:00:00 CDT Notes: Same as Diovan Start Date: 01/31/18 Stop Date: 01/31/18 Status: Discontinued valsartan 80 mg oral tablet 80 mg=1 tab, PO, Daily, # 30 tab, 0 Refill(s) Start Date: 01/23/18 Status: Ordered Results ELECTROLYTES Most recent to 1 2 oldest [Reference Range]: Sodium Lvl [135-145 142 mEq/L 141 mEq/L mEq/L] (01/31/18 4:33 AM) (01/23/18 11:10 AM) Potassium Lvl 3.8 mEq/L 5.0 mEq/L [3.5-5.1 mEq/L] (01/31/18 4:33 AM) (01/23/18 11:10 AM) Chloride Lvl [95-109 111 mEq/L 105 mEq/L mEq/L] *HI* (01/23/18 11:10 AM) (01/31/18 4:33 AM) CO2 [24-32 mEq/L] 23 mEq/L 30 mEq/L *LOW* (01/23/18 11:10 AM) (01/31/18 4:33 AM) AGAP [10.0-20.0 11.8 mEq/L 11.0 mEq/L mEq/L] (01/31/18 4:33 AM) (01/23/18 11:10 AM) CHEM PANEL Most recent to 1 2 oldest [Reference Range]: Creatinine Lvl 1.13 mg/dL 1.08 mg/dL [0.50-1.40 mg/dL] (01/31/18 4:33 AM) (01/23/18 11:10 AM) eGFR 47 mL/min/1.73m2 1 50 mL/min/1.73m2 2 *NA* *NA* (01/31/18 4:33 AM) (01/23/18 11:10 AM) BUN [7-22 mg/dL] 13 mg/dL 19 mg/dL (01/31/18 4:33 AM) (01/23/18 11:10 AM) Glucose Lvl [70-99 92 mg/dL 97 mg/dL mg/dL] (01/31/18 4:33 AM) (01/23/18 11:10 AM) Calcium Lvl 8.3 mg/dL 9.6 mg/dL [8.5-10.5 mg/dL] *LOW* (01/23/18 11:10 AM) (01/31/18 4:33 AM) 1Result Comment: The eGFR is calculated using the [...] from the National Kidney Disease Education Program ( NKDEP) which additionally recommends that when the eGFR is used in patients with extremes of body mass index for purposes of drug dosing, the eGFR should be mul tiplied by the estimated BMI. 2Result Comment: The eGFR is calculated using the [...] from the National Kidney Disease Education Program ( NKDEP) which additionally recommends that when the eGFR is used in patients with extremes of body mass index for purposes of drug dosing, the eGFR should be mul tiplied by the estimated BMI. URINE AND STOOL Most recent to 1 2 oldest [Reference Range]: UA Turbidity [Clear] Clear (01/30/18 2:34 PM) UA Color [Yellow] Yellow *NA* (01/30/18 2:34 PM) UA pH [5.0-8.0] 5.0 (01/30/18 2:34 PM) UA Spec Grav 1.014 [<=1.030] (01/30/18 2:34 PM) UA Glucose [Negative Negative mg/dL mg/dL] *NA* (01/30/18 2:34 PM) UA Blood [Negative] Negative (01/30/18 2:34 PM) UA Ketones [Negative Negative mg/dL mg/dL] *NA* (01/30/18 2:34 PM) UA Protein [Negative Negative mg/dL mg/dL] (01/30/18 2:34 PM) UA Urobilinogen <=1.0 mg/dL [0.1-1.0 mg/dL] *NA* (01/30/18 2:34 PM) UA Bili [Negative] Negative *NA* (01/30/18 2:34 PM) UA Leuk Est Trace [Negative] *ABN* (01/30/18 2:34 PM) UA Nitrite Negative [Negative] (01/30/18 2:34 PM) UA WBC [0-5 /HPF] 1 /HPF (01/30/18 2:34 PM) UA Sq Epi [Few /LPF] Occasional /LPF *NA* (01/30/18 2:34 PM) UA Hyal Cast [0-2 3 /LPF /LPF] *HI* (01/30/18 2:34 PM) UA Mucus [None Seen Few /LPF /LPF] *NA* (01/30/18 2:34 PM) HEMATOLOGY Most recent to 1 2 oldest [Reference Range]: WBC [3.7-10.4 K/CMM] 11.2 K/CMM *HI* (01/23/18 11:10 AM) RBC [4.20-5.40 4.25 M/CMM M/CMM] (01/23/18 11:10 AM) Hgb [12.0-16.0 g/dL] 11.8 g/dL 12.8 g/dL *LOW* (01/23/18 11:10 AM) (01/31/18 4:33 AM) Hct [36.0-48.0 %] 35.4 % 38.9 % *LOW* (01/23/18 11:10 AM) (01/31/18 4:33 AM) MCV [80.0-98.0 fL] 91.7 fL (01/23/18 11:10 AM) MCH [27.0-31.0 pg] 30.2 pg (01/23/18 11:10 AM) MCHC [32.0-36.0 33.0 g/dL g/dL] (01/23/18 11:10 AM) RDW [11.5-14.5 %] 14.0 % (01/23/18 11:10 AM) MPV [7.4-10.4 fL] 8.7 fL (01/23/18 11:10 AM) Platelet [133-450 243 K/CMM K/CMM] (01/23/18 11:10 AM) Segs [45.0-75.0 %] 70.0 % (01/23/18 11:10 AM) Lymphocytes 9.9 % [20.0-40.0 %] *LOW* (01/23/18 11:10 AM) Monocytes [2.0-12.0 9.2 % %] (01/23/18 11:10 AM) Eosinophils [0.0-4.0 10.3 % %] *HI* (01/23/18 11:10 AM) Basophils [0.0-1.0 0.6 % %] (01/23/18 11:10 AM) Segs-Bands # 7.8 K/CMM [1.5-8.1 K/CMM] (01/23/18 11:10 AM) Lymphocytes # 1.1 K/CMM [1.0-5.5 K/CMM] (01/23/18 11:10 AM) Monocytes # [0.0-0.8 1.0 K/CMM K/CMM] *HI* (01/23/18 11:10 AM) Eosinophils # 1.2 K/CMM [0.0-0.5 K/CMM] *HI* (01/23/18 11:10 AM) Basophils # [0.0-0.2 0.1 K/CMM K/CMM] (01/23/18 11:10 AM) PT [12.0-14.7 12.8 seconds seconds] (01/23/18 11:10 AM) INR [0.85-1.17] 0.96 (01/23/18 11:10 AM) PTT [22.9-35.8 27.1 seconds seconds] (01/23/18 11:10 AM) TUMOR MARKERS Most recent to 1 2 oldest [Reference Range]: CEA [0.0-3.0 ng/mL] 5.0 ng/mL *HI* (01/23/18 11:10 AM) Immunizations No data available for this section [...] Frequency Stopped smoking in 2010; entered on: 01/30/18 Assessment and Plan No data available for this section
[2019-02-07 15:25] VITALS: BP 121/65
--- NOTE | 2019-02-07 18:38 | Operative Report ---
DATE OF PROCEDURE: 02/07/2019 SURGEON: Negro Cameron MD PROCEDURE: Esophagogastroduodenoscopy with biopsies and esophageal dilatation. INDICATIONS FOR EGD: Dysphagia. MEDICATION: The patient was done under MAC, please see anesthesiologist's note. PROCEDURE IN DETAIL: With the patient in left lateral decubitus position, a flexible fiberoptic Olympus gastroscope was introduced into the esophagus under direct visualization without any difficulty. There were some patchy erythema noted in the distal esophagus. A small minute diverticulum was noted in the distal esophagus also. The scope was then advanced with ease into the stomach. Mucosa overlying the antrum and the body revealed some patchy erythema and [id number] edema. Biopsies were obtained and sent to stain for H pylori. Also, several polyps were noted in the body of the stomach, they were hyperplastic appearing and some were partially excised with the cold biopsy forceps. Pylorus was of normal contour and shape, it was intubated with ease and the scope was advanced all the way to the second portion of the duodenum. The scope was then withdrawn slowly. Mucosa overlying the proximal second portion and duodenal bulb appeared to be within normal limits. The scope was then withdrawn back into the stomach and retroflexed and intact, Barbara fundoplication was noted. The fundus appeared to be otherwise within normal limits. The scope was then straightened out, it was subsequently withdrawn. Esophagus was then dilated to size 52-[place]. The patient tolerated the procedure well. IMPRESSION: 1. Mild distal esophagitis. 2. Small esophageal diverticulum, distal esophagus. 3. 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 4. Intact Barbara fundoplication. 5. Gastritis, biopsied. Biopsies sent to stain for Helicobacter pylori. 6. Gastric polyps, hyperplastic appearing, body, some partially excised with the cold biopsy forceps. PLAN: Follow up histology. Increase Protonix to 40 mg one p.o. a.c. b.i.d. Negro Cameron MD [facility] [place], [place]/MODL /[id number] cc: Artis Guthrie MD
== END | disposition home or self-care (01) ==
LOC: OR 11:06
PROVIDERS: ATTEND Internal Medicine Gastroenterology
DX: K22.2 Esophageal obstruction (principal); K31.7 Polyp of stomach and duodenum; K29.50 Unspecified chronic gastritis without bleeding; Q39.6 Congenital diverticulum of esophagus; K20.9 Esophagitis, unspecified; K21.9 Gastro-esophageal reflux disease without esophagitis; C34.92 Malignant neoplasm of unspecified part of left bronchus or lung; Z98.890 Other specified postprocedural states; I10 Essential (primary) hypertension; E03.9 Hypothyroidism, unspecified; F41.9 Anxiety disorder, unspecified; Z91.041 Radiographic dye allergy status; Z01.810 Encounter for preprocedural cardiovascular examination; Z01.812 Encounter for preprocedural laboratory examination
CPT/HCPCS: 36415; 43239; 43450; 85025; 88305; 88312; 93005; J2001 ×2; J2250; J2704

== ENCOUNTER → 2019-12-17 | Day surgery (SDC) | payer MEDICARE ==
[2019-12-13 14:05] LABS: BASOPHILS # (AUTO) 0.1 (0.0-0.1); BASOPHILS % 0.8 % (0.0-1.0); EOSINOPHILS # (AUTO) 0.5 (0.0-0.4); EOSINOPHILS % 6.8 % (0.0-6.0); HEMATOCRIT 39.6 % (34.2-44.1); HEMOGLOBIN 12.6 g/dL (12.0-16.0); LYMPHOCYTES # (AUTO) 1.1 (1.0-3.2); LYMPHOCYTES % 14.8 % (18.0-39.1); MEAN CORPUSCULAR HEMOGLOBIN 29.9 pg (28-32); MEAN CORPUSCULAR HGB CONC 31.8 g/dL (31-35); MEAN CORPUSCULAR VOLUME 94.1 fL (81-99); MONOCYTES # (AUTO) 0.9 (0.2-0.8); NEUTROPHILS % 65.3 % (38.7-80.0); PLATELET COUNT 265 x10e3/uL (140-360); RED BLOOD COUNT 4.21 x10e6/uL (3.6-5.1); RED CELL DISTRIBUTION WIDTH 12.7 % (11.7-14.4)
[~2019-12-17] MED LIST changes: +FENTANYL CITRATE/PF 100MCG/2 ML INJ ONE; -LIDOCAINE HCL 2% LOCAL INJ 5 ML SDV VIAL INJ ONE; -MIDAZOLAM HCL 2 MG/2 ML VIAL ONE
[2019-12-17 09:35] VITALS: BP 143/75
--- NOTE | 2019-12-17 09:59 | Operative Report ---
DATE OF PROCEDURE: 12/17/2019 SURGEON: Negro Cameron MD PROCEDURES: EGD with esophageal dilatation, polypectomy, and biopsies. INDICATIONS FOR PROCEDURE: Dysphagia to solids, upper abdominal pain, nausea. MEDICATIONS: The patient was done under MAC, please see anesthesiologist's note. PROCEDURE IN DETAIL: With the patient in left lateral decubitus position, a flexible fiberoptic Olympus gastroscope was introduced into the esophagus under direct visualization without any difficulty. There was some patchy erythema noted in distal esophagus. There was a small diverticulum noted in the distal esophagus. A mild stricture was noted at the GE junction that was dilated to size 54-Stateless [place]. The scope was then advanced with ease into the stomach. Mucosa overlying the antrum and the body revealed some patchy erythema and low-grade to moderate edema, and biopsies were obtained, sent to stain for H pylori. Hyperplastic-appearing polyps were noted in the body of the stomach, some were partially excised with the cold biopsy forceps. Pylorus was of normal contour and shape, was intubated with ease and the scope was advanced all the way to the second portion of the duodenum. The scope was then withdrawn slowly. Mucosa overlying the proximal second portion and the duodenal bulb appeared to be within normal limits. The scope was then withdrawn back into the stomach and retroflexed and an intact Barbara fundoplication was noted. The scope was then straightened out, it was subsequently withdrawn. The patient tolerated the procedure well. IMPRESSION: 1. Mild distal esophagitis. 2. Small diverticulum, distal esophagus. 3. Esophageal stricture GE junction, dilated to size 54-Stateless [place]. 4. Intact Barbara fundoplication. 5. Gastritis biopsied, biopsies sent to stain for H pylori. 6. Gastric polyps, hyperplastic-appearing, body, some partially excised with the cold biopsy forceps. PLAN: Follow up Histology. Continue Protonix 40 mg 1 p.o. q.a.m. a.c. Negro Cameron MD [facility] [place] /[id number] cc: Artis Guthrie MD
== END | disposition home or self-care (01) ==
LOC: OR 06:53
PROVIDERS: ATTEND Internal Medicine Gastroenterology
DX: K29.70 Gastritis, unspecified, without bleeding (principal); K31.7 Polyp of stomach and duodenum; K22.2 Esophageal obstruction; K20.9 Esophagitis, unspecified; K22.5 Diverticulum of esophagus, acquired; Z98.890 Other specified postprocedural states; I10 Essential (primary) hypertension; M19.90 Unspecified osteoarthritis, unspecified site; M81.0 Age-related osteoporosis without current pathological fracture; E03.9 Hypothyroidism, unspecified; F41.9 Anxiety disorder, unspecified; Z91.041 Radiographic dye allergy status; Z88.0 Allergy status to penicillin; Z86.010 Personal history of colon polyps; Z85.118 Personal history of other malignant neoplasm of bronchus and lung
CPT/HCPCS: 36415; 43239; 43450; 85025; 87635; 88305; 88312; 93005; J2001; J2704; J3010

== ENCOUNTER → 2021-07-28 | Outpatient (CLI) | payer MEDICARE ==
[~2021-07-28] MED LIST changes: -FENTANYL CITRATE/PF 100MCG/2 ML INJ ONE; -LIDOCAINE HCL 1% 2 ML AMP ONE; -PROPOFOL IV EMULSION 10 MG/ML 20 ML VIAL ONE
== END ==
LOC: CT 03:54
PROVIDERS: ATTEND Internal Medicine Gastroenterology
DX: R10.30 Lower abdominal pain, unspecified (principal); R14.0 Abdominal distension (gaseous)
CPT/HCPCS: 74176

== ENCOUNTER → 2021-10-14 | Day surgery (SDC) | payer MEDICARE ==
[2021-10-12 14:30] LABS: BASOPHILS # (AUTO) 0.1 (0.0-0.1); BASOPHILS % 0.9 % (0.0-1.0); EOSINOPHILS # (AUTO) 0.4 (0.0-0.4); EOSINOPHILS % 3.4 % (0.0-6.0); HEMATOCRIT 37.7 % (34.2-44.1); HEMOGLOBIN 12.1 g/dL (12.0-16.0); LYMPHOCYTES # (AUTO) 1.2 (1.0-3.2); LYMPHOCYTES % 11.8 % (18.0-39.1); MEAN CORPUSCULAR HEMOGLOBIN 30.2 pg (28-32); MEAN CORPUSCULAR HGB CONC 32.1 g/dL (31-35); MONOCYTES # (AUTO) 1.2 (0.2-0.8); MONOCYTES % 11.8 % (4.4-11.3); NEUTROPHILS # (AUTO) 7.5 (2.1-6.9); NEUTROPHILS % 71.8 % (38.7-80.0); PLATELET COUNT 267 x10e3/uL (140-360); RED BLOOD COUNT 4.01 x10e6/uL (3.6-5.1); RED CELL DISTRIBUTION WIDTH 13.2 % (11.7-14.4)
[~2021-10-14] MED LIST changes: +FENTANYL CITRATE/PF 100MCG/2 ML INJ ONE; +LIDOCAINE HCL 1% 2 ML AMP ONE; +LIDOCAINE HCL 2% LOCAL INJ 5 ML SDV VIAL INJ ONE; +MIDAZOLAM HCL 2 MG/2 ML VIAL ONE; +PROPOFOL IV EMULSION 10 MG/ML 20 ML VIAL ONE; +WELCHOL625 MG PO
[2021-10-14 12:25] VITALS: BP 135/76
== END | disposition home or self-care (01) ==
LOC: ENDO 09:55
PROVIDERS: ATTEND Internal Medicine Gastroenterology
DX: K22.5 Diverticulum of esophagus, acquired (principal); K31.7 Polyp of stomach and duodenum; K29.50 Unspecified chronic gastritis without bleeding; K21.9 Gastro-esophageal reflux disease without esophagitis; K22.89 Other specified disease of esophagus; Z86.010 Personal history of colon polyps; K62.3 Rectal prolapse; Z71.3 Dietary counseling and surveillance; I10 Essential (primary) hypertension; M81.0 Age-related osteoporosis without current pathological fracture; E03.9 Hypothyroidism, unspecified; F41.0 Panic disorder [episodic paroxysmal anxiety]; G62.9 Polyneuropathy, unspecified; Z91.041 Radiographic dye allergy status; Z01.812 Encounter for preprocedural laboratory examination; Z79.899 Other long term (current) drug therapy; Z68.27 Body mass index [BMI] 27.0-27.9, adult; Z85.118 Personal history of other malignant neoplasm of bronchus and lung; Z98.890 Other specified postprocedural states
CPT/HCPCS: 36415; 43239; 43450; 85025; 88305; 88312; J2001 ×2; J2250; J2704; J3010

== ENCOUNTER → 2022-05-19 | Day surgery (SDC) | payer MEDICARE ==
[2022-05-17 14:38] LABS: BASOPHILS # (AUTO) 0.1 (0.0-0.1); BASOPHILS % 0.7 % (0.0-1.0); EOSINOPHILS # (AUTO) 0.3 (0.0-0.4); EOSINOPHILS % 2.8 % (0.0-6.0); HEMATOCRIT 41.3 % (34.2-44.1); HEMOGLOBIN 12.6 g/dL (12.0-16.0); LYMPHOCYTES # (AUTO) 1.7 (1.0-3.2); LYMPHOCYTES % 17.2 % (18.0-39.1); MEAN CORPUSCULAR HEMOGLOBIN 27.4 pg (28-32); MEAN CORPUSCULAR HGB CONC 30.5 g/dL (31-35); MEAN CORPUSCULAR VOLUME 89.8 fL (81-99); MONOCYTES % 9.5 % (4.4-11.3); NEUTROPHILS # (AUTO) 7.1 (2.1-6.9); NEUTROPHILS % 69.6 % (38.7-80.0); PLATELET COUNT 280 x10e3/uL (140-360); RED CELL DISTRIBUTION WIDTH 13.7 % (11.7-14.4)
[~2022-05-19] MED LIST changes: +ALBUTEROL0.63 MG/3 INH; +ALIGN4 MG PO; +AMBIEN10 MG PO; -FENTANYL CITRATE/PF 100MCG/2 ML INJ ONE; +LEVOCETIRIZINE D5 MG PO; -LIDOCAINE HCL 1% 2 ML AMP ONE; +MEGA RED PO; -MIDAZOLAM HCL 2 MG/2 ML VIAL ONE; +VITAMIN B COMP1 EACH PO
[2022-05-19 14:45] VITALS: BP 129/69
== END | disposition home or self-care (01) ==
LOC: ENDO 11:19
PROVIDERS: ATTEND Internal Medicine Gastroenterology
DX: K20.90 Esophagitis, unspecified without bleeding (principal); K29.50 Unspecified chronic gastritis without bleeding; K22.5 Diverticulum of esophagus, acquired; K21.9 Gastro-esophageal reflux disease without esophagitis; Z86.010 Personal history of colon polyps; Z71.3 Dietary counseling and surveillance; C34.90 Malignant neoplasm of unspecified part of unspecified bronchus or lung; M81.0 Age-related osteoporosis without current pathological fracture; E03.9 Hypothyroidism, unspecified; J44.9 Chronic obstructive pulmonary disease, unspecified; I10 Essential (primary) hypertension; G62.9 Polyneuropathy, unspecified; F41.9 Anxiety disorder, unspecified; Z88.0 Allergy status to penicillin; Z91.041 Radiographic dye allergy status; Z91.011 Allergy to milk products; Z01.810 Encounter for preprocedural cardiovascular examination; Z01.812 Encounter for preprocedural laboratory examination; Z79.899 Other long term (current) drug therapy; Z87.891 Personal history of nicotine dependence
CPT/HCPCS: 36415; 43239; 43450; 85025; 88305; 88342; 93005; C9113; 88304; 88312; J2001

== ENCOUNTER → 2025-02-01 | Outpatient (REF) | payer MEDICARE ==
[~2025-02-01] MED LIST changes: -LIDOCAINE HCL 2% LOCAL INJ 5 ML SDV VIAL INJ ONE; +LIPITOR20 MG PO; -PROPOFOL IV EMULSION 10 MG/ML 20 ML VIAL ONE
== END ==
LOC: DX 13:29
PROVIDERS: ATTEND Physician Assistant Medical
DX: M81.0 Age-related osteoporosis without current pathological fracture (principal)
CPT/HCPCS: 77080

== ENCOUNTER → 2025-05-07 | Outpatient (REF) | payer MEDICARE ==
[2025-05-07 14:39] LABS: EST GLOMERULAR FILTRATION RATE 57.0 ML/MIN (>=60)
== END ==
LOC: LAB 08:00 → CT 13:54
PROVIDERS: ATTEND Internal Medicine Gastroenterology
DX: Z01.812 Encounter for preprocedural laboratory examination (principal); R19.00 Intra-abdominal and pelvic swelling, mass and lump, unspecified site; R10.30 Lower abdominal pain, unspecified; Z86.0100 Personal history of colon polyps, unspecified; I10 Essential (primary) hypertension; E03.9 Hypothyroidism, unspecified
CPT/HCPCS: 36415; 82565; 84520

== ENCOUNTER → 2025-06-11 | Outpatient (REF) | payer MEDICARE | LOC: DX 08:42 | PROVIDERS: ATTEND Internal Medicine Gastroenterology | DX: K63.9 Disease of intestine, unspecified (principal) | CPT/HCPCS: 74280 ==